=== PATIENT | male | born 1970 | race Two or more races ===

== ENCOUNTER → 2020-02-28 09:58 | Outpatient (BNVA) | payer OTHER, SELFPAY | PROVIDERS: PCP Internal Medicine; Referring Provider Internal Medicine; Visit Provider Nurse Practitioner Gerontology | DX: E11.42 Type 2 diabetes mellitus with diabetic polyneuropathy (principal); I10 Essential (primary) hypertension; Z79.84 Long term (current) use of oral hypoglycemic drugs | CPT/HCPCS: 99213 ==

== ENCOUNTER 2020-08-08 07:59 | Outpatient (REF) | payer OTHER, SELFPAY ==
[2020-08-08 09:24] LABS: Estimated Average Glucose 117 mg/dL; Hemoglobin A1c % 5.7 %
[2020-08-08 09:41] LABS: Creatinine Urine 207.83 mg/dL; Microalbum/Creatinine Ratio Ur 3.8 ug/mg cr
[2020-08-08 09:47] LABS: Alanine Aminotransferase 31 U/L (0-40); Albumin Level 4.3 g/dL (3.5-5.0); Alkaline Phosphatase 108 U/L (39-117); Anion Gap 10 (12-20); Aspartate Amino Transferase 22 U/L (5-37); Bilirubin Total 0.5 mg/dL (0.0-1.0); Blood Urea Nitrogen 12 mg/dL (9-16); Calcium 8.8 mg/dL (8.4-10.2); Carbon Dioxide 29 mmol/L (22-29); Chloride 106 mmol/L (96-108); Cholesterol 118 mg/dL; Estimated Glomerular Filt Rate > 60; Glucose Fasting 106 mg/dL (60-99); HDL Cholesterol 38 mg/dL; LDL Cholesterol Calculated 69 mg/dl; Potassium 4.8 mmol/L (3.3-5.1); Sodium 140 mmol/L (135-145); Total Protein 7.2 g/dL (6.5-8.0); Triglycerides 55 mg/dL
[2020-08-15 12:11] LABS: Vitamin D 25-OH, D2 <4 ng/mL; Vitamin D 25-OH, D3 24 ng/mL; Vitamin D 25-OH, Total 24 ng/mL (30-100)
== END 2020-08-08 08:00 | disposition home or self-care (01) ==
LOC: HO.LAB 07:59
PROVIDERS: Absent Provider Internal Medicine; PCP Internal Medicine; Visit Provider Nurse Practitioner Gerontology
DX: E11.42 Type 2 diabetes mellitus with diabetic polyneuropathy (principal); E55.9 Vitamin D deficiency, unspecified; E78.5 Hyperlipidemia, unspecified
CPT/HCPCS: 36415; 80053; 80061; 82043; 82306; 83036

== ENCOUNTER 2020-08-23 11:12 | Outpatient (REF) | payer OTHER, SELFPAY ==
[2020-08-23 14:26] LABS: SARS COV2 PCR INHOUSE NEGATIVE (Negative)
== END 2020-08-23 11:13 | disposition home or self-care (01) ==
LOC: HO.LAB 11:12
PROVIDERS: Visit Provider Internal Medicine
DX: Z20.822 Contact with and (suspected) exposure to COVID-19 (principal)
CPT/HCPCS: C9803; U0003

== ENCOUNTER 2021-11-03 07:20 | Outpatient (REF) | payer OTHER, SELFPAY ==
[2021-11-03 09:10] LABS: Alanine Aminotransferase 45 U/L (0-40); Albumin Level 4.2 g/dL (3.5-5.0); Alkaline Phosphatase 123 U/L (39-117); Anion Gap 11 (12-20); Aspartate Amino Transferase 33 U/L (5-37); Bilirubin Total 0.8 mg/dL (0.0-1.0); Blood Urea Nitrogen 14 mg/dL (9-16); Calcium 9.1 mg/dL (8.4-10.2); Carbon Dioxide 26 mmol/L (22-29); Chloride 105 mmol/L (96-108); Cholesterol 120 mg/dL; Estimated Glomerular Filt Rate > 60; Glucose Fasting 161 mg/dL (60-99); HDL Cholesterol 31 mg/dL; LDL Cholesterol Calculated 74 mg/dl; Potassium 4.4 mmol/L (3.3-5.1); Sodium 138 mmol/L (135-145); Total Protein 7.3 g/dL (6.5-8.0); Triglycerides 78 mg/dL
[2021-11-03 09:32] LABS: Vitamin D 25-OH Total 26.2 ng/mL (>30)
[2021-11-03 09:37] LABS: Creatinine Urine 265.72 mg/dL; Microalbum/Creatinine Ratio Ur 4.1 ug/mg cr
== END 2021-11-03 07:21 | disposition home or self-care (01) ==
LOC: HO.LAB 07:20
PROVIDERS: PCP Internal Medicine; Visit Provider Internal Medicine
DX: E11.42 Type 2 diabetes mellitus with diabetic polyneuropathy (principal); E78.5 Hyperlipidemia, unspecified; E55.9 Vitamin D deficiency, unspecified
CPT/HCPCS: 36415; 80053; 80061; 82043; 82306

== ENCOUNTER → 2021-12-22 09:39 | Outpatient (BNVA) | payer OTHER, SELFPAY | PROVIDERS: PCP Internal Medicine; Visit Provider Nurse Practitioner Family | DX: Z12.11 Encounter for screening for malignant neoplasm of colon (principal); K21.9 Gastro-esophageal reflux disease without esophagitis | CPT/HCPCS: 99202; 99212 ==

== ENCOUNTER 2022-07-16 09:59 | Day surgery (SDC) | payer OTHER, SELFPAY ==
[2022-04-10 13:56] VITALS: BMI 42.3
--- NOTE | 2022-04-20 10:53 | P.CONAN_ITS ---
HPI - Anesthesia Eval Consult details Narrative: 51yo M for Upper Endoscopy and Colonoscopy [facility] Active Problems Active Problems: All Active Problems (Updated 03/05/22 @ 11:35 by Kiera Roche MD) Hypovitaminosis D (Acute) Diabetes mellitus type 2 in obese (Acute) Morbid obesity (Acute) YONATAN (obstructive sleep apnea) (Acute) Physical exam (Acute) Type 2 diabetes mellitus with polyneuropathy (Acute) Essential hypertension (Acute) Past Medical History Medical History Arthritis Balance disorder Compression fracture Essential hypertension GERD (gastroesophageal reflux disease) Morbid obesity Obesity YONATAN (obstructive sleep apnea) Physical exam Spina bifida occulta Spondylosis Type 2 diabetes mellitus with polyneuropathy Vertebral fracture Family History Family History Mother No problems noted. Father No problems noted. Surgical History Surgical History History of hydrocelectomy Social History Social History (Updated 03/05/22 @ 11:08 by Kiera Roche MD) Housing: Apartment Alcohol intake: former Patient Tobacco Use Status: Former Tobacco user Tobacco use type: Cigarette e-Cigarette/Vaping Use: Never Used Second Hand Smoke Exposure: No service: No Current occupational status: disabled Cognitive needs: Yes Hearing needs: No Vision needs: Yes Meds Allergies Allergy/AdvReac Type Severity Reaction Status Date / Time N.K.D.A. Allergy Unknown none Uncoded 04/10/22 13:39 Home Medications Medication Instructions Recorded Confirmed Last Taken Type cholecalciferol (vitamin D3) 25 25 mcg PO DAILY 02/28/20 04/10/22 Unknown History mcg (1,000 unit) tablet Exam Exam Date and Time: April 20, 2022 1053 Height,Weight and Vital Signs: Height 5 ft 9 in Weight 130.181 kg Pertinent Lab Results Pertinent Lab Results: Laboratory Tests 09/01/18 11/03/21 14:03 07:57 WBC 7.2 Hgb 14.3 Hct 42.5 Plt Count 221 Sodium 138 Potassium 4.4 Chloride 105 Carbon Dioxide 26 BUN 14 Creatinine 1.05 Assessment and Plan Assessment Anesthesia Assessment: Chart Reviewed
[2022-07-10 15:07] VITALS: BMI 44.3
--- NOTE | 2022-07-16 10:32 | MHC.SHP ---
Pre-Procedural Eval Section A Date of Service: 07/16/22 Section B Chief Complaint: reflux disease,screening Details of Present Illness: Medical History Arthritis Balance disorder Compression fracture Essential hypertension GERD (gastroesophageal reflux disease) Morbid obesity Obesity YONATAN (obstructive sleep apnea) Physical exam Spina bifida occulta Spondylosis Type 2 diabetes mellitus with polyneuropathy Vertebral fracture Surgical History History of hydrocelectomy Relevant Family History (Specify if Yes): No Relevant Social History: None Present Medications: see Short Stay Collaborative assessment Allergies: Allergies Allergy/AdvReac Type Severity Reaction Status Date / Time No Known Allergies Allergy Verified 07/16/22 10:22 Review of Systems Review of Systems Comment: Ten point ROS negative Exam Exam Comment: Gen appear: No acute distress HEENT: no icterus Chest: No overt resp distress Abd: soft, nontender, nondistended Psych: Stable affect, answering questions appropriately Neuro: A/Ox3 noted to move all extremities spontaneously Ext: no peripheral edema Plan Diagnosis/Plan: Unchanged I have reviewed the history and physical and performed a pertinent physical examination on my patient. No changes have occurred unless specified. Time Spent With Patient Time: Total time managing care of this patient today ____ minutes.
[2022-07-16 10:57] VITALS: BP 133/73; PULSE 86; RESP 18; TEMP 36.6; O2SAT 95
[2022-07-16 11:05] LABS: Glucose, Whole Blood 103 mg/dL (60-115)
[2022-07-16] MEDS: Lactated Ringers 1,000 ML 50 ML IVCONT (11:05)
--- NOTE | 2022-07-16 11:20 | P.OP_ITS ---
Operative Note Operative Note Date of Service: 07/16/22 Narrative: Procedure:?Esophagogastroduodenoscopy Indication:?GERD Endoscopist:?Shahid Still Anesthesia Provider:?Dr Susanne Saucedo Anesthesia type:?MAC Instrument:?Olympus [id number] EGD Procedure:?? The procedure, indications, preparation and potential complications were reviewed with the patient, who indicated understanding and gave written informed consent to proceed. plodding machine operator assisted with the encounter. A physical exam was performed. The endoscope was introduced through the mouth, and advanced to the second part of the duodenum. The mucosa was carefully examined on slow withdrawal of the endoscope. The patient tolerated the procedure well. There were no immediate complications.? ? EGD Findings:? * Esophagus:? Small linear erosions were noted right above the Z line spanning < 5 mm. The Z line was at 39 cm and irregular with squamocolumnar mucosa extending up to 38 cm. Lower esophagus forceps biopsies were obtained to rule out Onofre's esophagus. * Stomach:? Semi solid food was seen in the fundus and body obscuring most of the visualisation. The antrum appeared normal. Cardia was normal on retroflexion. * Duodenum:? Normal mucosa was noted in the whole of the examined duodenum. The patient was booked for EGD/colonoscopy however due to stomach full of food the colonoscopy was canceled as per anesthesia's discretion as he was deemed to be a high aspiration risk for an elective procedure. Impression:? * Grade A esophagitis * Irregular Z line (biopsy) * Food in stomach ? gastroparesis * Normal duodenum Recommendations:?? * Follow path results. * If Onofre's esophagus confirmed on histology, management will be contingent on presence and extent of dysplasia. * Colonoscopy will rebooked within the next 6 months. Pt will be advised to stay on clear liquids for 36h instead of 24h prior to the colonoscopy. ? This was reviewed with the patient.
[2022-07-16 11:57] VITALS: BP 124/70; PULSE 85; RESP 16; TEMP 36.1; O2SAT 96
[2022-07-16 12:23] VITALS: BP 127/80; PULSE 88; RESP 18; TEMP 36.1; O2SAT 97
--- NOTE | 2022-07-16 12:36 | P.CONAN_ITS ---
HPI - Anesthesia Eval Consult details Narrative: screening [facility] Active Problems Active Problems: All Active Problems (Updated 07/16/22 @ 11:03 by Paulina Perez, RN) Diabetes mellitus type 2 in obese (Acute) Hypovitaminosis D (Acute) Hyperlipidemia LDL goal <70 (Acute) Morbid obesity (Acute) YONATAN (obstructive sleep apnea) (Acute) Physical exam (Acute) Type 2 diabetes mellitus with polyneuropathy (Acute) Essential hypertension (Acute) Past Medical History Medical History (Updated 07/16/22 @ 11:03 by Paulina Perez RN) Arthritis Balance disorder Compression fracture Elevated cholesterol Essential hypertension GERD (gastroesophageal reflux disease) History of fatty infiltration of liver Morbid obesity Obesity YONATAN (obstructive sleep apnea) Physical exam Spina bifida occulta Spondylosis Type 2 diabetes mellitus with polyneuropathy Vertebral fracture Family History Family History Mother No problems noted. Father No problems noted. Family history of problems with anesthesia: No Surgical History Surgical History History of hydrocelectomy History of Problems with Anesthesia: No Social History Social History Housing: Apartment Alcohol intake: former Patient Tobacco Use Status: Former Tobacco user Quit Date: 2006 Tobacco use type: Cigarette e-Cigarette/Vaping Use: Never Used Second Hand Smoke Exposure: No Use of substances other than those prescribed or required for medical reasons: No Are you DNR?: No Advance Directives: No Advance Directives Information Provided: Yes service: No Current occupational status: disabled Cognitive needs: Yes Hearing needs: No Vision needs: Yes Meds Allergies Allergy/AdvReac Type Severity Reaction Status Date / Time No Known Allergies Allergy Verified 07/16/22 10:22 Active Medications: Current Medications Lactated Ringer's (Lr) 1,000 mls @ 50 mls/hr IVCONT .Q20H NKECHI Last Admin: 07/16/22 11:05 Dose: 50 mls/hr Home Medications Medication Instructions Recorded Confirmed Last Taken Type cholecalciferol (vitamin D3) 25 25 mcg PO DAILY 02/28/20 07/06/22 Unknown History mcg (1,000 unit) tablet Exam Exam Date and Time: July 16, 2022 1236 Height,Weight and Vital Signs: Height 5 ft 9 in Weight 136.078 kg Last Vital Signs Temp 97.0 F 07/16/22 12:23 Pulse 88 07/16/22 12:23 Resp 18 07/16/22 12:23 BP 127/80 07/16/22 12:23 Pulse Ox 97 07/16/22 12:23 O2 Del Method 07/16/22 12:23 O2 Flow Rate 4 07/16/22 11:57 Pertinent Lab Results Pertinent Lab Results: Laboratory Tests 07/16/22 10:58 POC Glucose 103 Airway Mallampati Class: III TM Dist: >3cm Neck ROM: Full Denture: Upper and Lower Heart: rr Lungs: cta Assessment and Plan Assessment Anesthesia Assessment: Anesthesia Plan Discussed and Chart Reviewed Final Anesthetic Review Family History of Problems with Anesthesia: No History of Problems with Anesthesia: No NPO: Yes ASA Class: III Final Preanesthetic Review: No Changes in Pt Med Stat, Meds/Allgs Chart R sebastian, Consent Obtained/Reviewed and Anes Risks/Benef Reviewed Patient Risk: High Procedure Risk: Low Anesthetic Plan Anesthetic Plan: MAC: Disposition: Standard PACU
== END 2022-07-16 13:06 | disposition home or self-care (01) ==
PROVIDERS: PCP Internal Medicine; Visit Provider Internal Medicine
PROC: (CPT 43239; principal; 2022-07-16 11:40)
DX: K21.9 Gastro-esophageal reflux disease without esophagitis (principal); K20.80 Other esophagitis without bleeding; K31.89 Other diseases of stomach and duodenum; I10 Essential (primary) hypertension; E66.01 Morbid (severe) obesity due to excess calories; Z68.41 Body mass index [BMI] 40.0-44.9, adult; G47.33 Obstructive sleep apnea (adult) (pediatric); E11.42 Type 2 diabetes mellitus with diabetic polyneuropathy; Z79.84 Long term (current) use of oral hypoglycemic drugs; Z79.899 Other long term (current) drug therapy
CPT/HCPCS: 43239; 82947; 88305

== ENCOUNTER → 2022-07-24 15:20 | Outpatient (REF) | payer OTHER, SELFPAY | LOC: HO.SL 15:20 | PROVIDERS: PCP Internal Medicine; Visit Provider Internal Medicine | DX: G47.33 Obstructive sleep apnea (adult) (pediatric) (principal) | CPT/HCPCS: 95806 ==

== ENCOUNTER → 2022-08-17 13:52 | Outpatient (BNVA) | payer OTHER, SELFPAY | PROVIDERS: PCP Internal Medicine; Visit Provider Nurse Practitioner Family | DX: G47.33 Obstructive sleep apnea (adult) (pediatric) (principal); E66.01 Morbid (severe) obesity due to excess calories; Z68.41 Body mass index [BMI] 40.0-44.9, adult | CPT/HCPCS: 99202 ==

== ENCOUNTER 2022-10-29 08:19 | Outpatient (REF) | payer OTHER, SELFPAY ==
[2022-10-29 10:14] LABS: Alanine Aminotransferase 66 U/L (0-40); Albumin Level 4.2 g/dL (3.5-5.0); Alkaline Phosphatase 135 U/L (39-117); Anion Gap 11 (12-20); Aspartate Amino Transferase 45 U/L (5-37); Bilirubin Total 0.5 mg/dL (0.0-1.0); Blood Urea Nitrogen 11 mg/dL (9-16); Calcium 9.3 mg/dL (8.4-10.2); Carbon Dioxide 26 mmol/L (22-29); Chloride 106 mmol/L (96-108); Cholesterol 115 mg/dL; Estimated Glomerular Filt Rate > 60; Glucose Fasting 155 mg/dL (60-99); HDL Cholesterol 34 mg/dL; LDL Cholesterol Calculated 68 mg/dl; Sodium 139 mmol/L (135-145); Total Protein 7.2 g/dL (6.5-8.0); Triglycerides 67 mg/dL
[2022-10-29 10:15] LABS: Creatinine Urine 303.35 mg/dL; Microalbum/Creatinine Ratio Ur 4.9 ug/mg cr
[2022-10-29 10:31] LABS: Thyroid Stimulating Hormone 1.67 uIU/mL (0.32-4.0); Vitamin D 25-OH Total 27.9 ng/mL (>30)
== END 2022-10-29 08:20 | disposition home or self-care (01) ==
LOC: HO.LAB 08:19
PROVIDERS: PCP Internal Medicine; Visit Provider Internal Medicine
DX: E11.69 Type 2 diabetes mellitus with other specified complication (principal)
CPT/HCPCS: 36415; 80053; 80061; 82043; 82306; 84443

== ENCOUNTER → 2022-11-19 13:58 | Outpatient (BNVA) | payer OTHER, SELFPAY | PROVIDERS: PCP Internal Medicine; Visit Provider Nurse Practitioner Family | DX: G47.33 Obstructive sleep apnea (adult) (pediatric) (principal); E66.01 Morbid (severe) obesity due to excess calories; Z68.41 Body mass index [BMI] 40.0-44.9, adult | CPT/HCPCS: 99212 ==

== ENCOUNTER 2023-03-01 07:43 | Outpatient (REF) | payer OTHER, SELFPAY | END 2023-03-01 07:44 | disposition home or self-care (01) | LOC: HO.LAB 07:43 | PROVIDERS: PCP Internal Medicine; Visit Provider Internal Medicine | DX: E78.5 Hyperlipidemia, unspecified (principal); E55.9 Vitamin D deficiency, unspecified; E11.69 Type 2 diabetes mellitus with other specified complication; E66.9 Obesity, unspecified | CPT/HCPCS: 36415; 80053; 80061; 82043; 82306; 82570 ==

== ENCOUNTER 2023-03-04 10:47 | Outpatient (AMB) | payer OTHER, SELFPAY ==
[2023-03-04 10:59] VITALS: BP 146/90; PULSE 69; O2SAT 95; BMI 40.9
--- NOTE | 2023-03-04 10:59 | MHC.PC.OV ---
Vital Signs 03/04/23 10:59 Height 5 ft 9 in Weight 277 lb BMI 40.9 BP 146/90 H Blood Pressure Location Lt brachial Position Sitting Pulse 69 Pulse Source Pulse Oximeter Pulse Oximetry (%) 95 Oxygen Delivery Method Room Air Intake Visit Reasons: dm Intake Note: Patient here for a follow up DM Senior It Engineer Required: No Accompanied by: Self / Same As Patient Allergies No Known Allergies Allergy (Verified 03/04/23 11:11) Medication List - Last Reconciled 03/04/23 by Kiera Roche MD amlodipine 2.5 mg PO DAILY 90 days blood sugar diagnostic (FreeStyle Lite Strips) 1 strip miscellaneous BID 25 days lisinopril 40 mg PO DAILY 90 days miscellaneous medical supply (Blood Pressure Cuff) As directed pioglitazone 30 mg PO DAILY 90 days rosuvastatin 5 mg PO DAILY 90 days semaglutide (Ozempic) 0.25 mg (0.368 mL) subcut QWEEK 90 days tramadol 50 mg PO BID PRN 30 days Tobacco use date assessed: 07/06/22 Dental Screening Dental Screen Date: 03/04/23 Did you have a dental visit in the last 12 months?: Yes Did you have a dental problem in the last 6 months where you did not have access to dental care?: No Was dental information given to patient?: Patient has dentist HPI HPI Comments History of Present Illness Details This is a 52-year-old male with diabetes mellitus type 2, hypertension, hyperlipidemia and morbid obesity that comes today for follow-up on his conditions. A1c slightly elevated and I will increase Ozempic. Blood pressure also elevated and I will increase amlodipine from 2.5 mg to 5 mg. Blood pressure will be recheck in 3 weeks by nurse navigator. LDL within goal. He is morbidly obese with a BMI of 40.9 and declines weight loss surgery. Was advised to diet and exercise to reach BMI goal less than 30. [facility] Medical History History of fatty infiltration of liver Elevated cholesterol Morbid obesity Physical exam Vertebral fracture Obesity Spina bifida occulta Balance disorder Compression fracture Spondylosis Arthritis YONATAN (obstructive sleep apnea) GERD (gastroesophageal reflux disease) Essential hypertension Type 2 diabetes mellitus with polyneuropathy Surgical History History of esophagogastroduodenoscopy (EGD) Hx of colonoscopy History of hydrocelectomy Family History Mother Hypertension Arthritis Emphysema lung Father Hypertension Diabetes Brother Diabetes Hypertension Social History Housing: Apartment Alcohol intake: former Patient Tobacco Use Status: Former Tobacco user Quit Date: 2006 Tobacco use type: Cigarette e-Cigarette/Vaping Use: Never Used Second Hand Smoke Exposure: No service: No Current occupational status: disabled Cognitive needs: Yes Hearing needs: No Vision needs: Yes Questionnaire Thrive Questionnaire Date Thrive assessed: 07/06/22 EARLE-7 AMB Questionnaire EARLE-7 Date EARLE - 7 assessed: 07/06/22 Source: Developed by Drs. Iván Lee, Yamilka Parker, Wilbert Medrano and colleagues, with an educational mary kate from [employer]. Review of Systems Const All systems reviewed & are unremarkable except as noted in HPI and below Eyes Reports no additional complaints, Denies change in vision and Denies other visual disturbances Card Denies chest pain at rest, Denies chest pain with activity, Denies edema, Denies irregular heart rhythm, Denies claudication, Denies dyspnea, Denies dyspnea on exertion, Denies orthopnea, Denies paroxysmal nocturnal dyspnea and Denies slow heart rate Resp Denies cough, Denies dyspnea and Denies dyspnea on exertion GI Denies abdominal pain, Denies change in bowel habits, Denies excessive flatus, Denies nausea and Denies vomiting Denies urinary hesitancy, Denies urinary incontinence and Denies urinary urgency Musc Denies abnormal gait, Denies atrophy, Denies deformity and Denies limited range of motion Skin/Breast Denies bleeding lesions, Denies changing lesions and Denies rash Neuro Denies abnormal gait and Denies lack of coordination Physical exam (Primary Care) Vital Signs: Last Vital Signs Pulse 69 03/04/23 10:59 BP 146/90 H 03/04/23 10:59 Pulse Ox 95 03/04/23 10:59 Oxygen Delivery Method Room Air 03/04/23 10:59 BMI result Body Mass Index 40.9 Tobacco/Smoking Status: Tobacco use Status Tobacco use date assessed 07/06/22 03/04/23 11:01 Patient Tobacco Use Status Former Tobacco user 03/04/23 11:01 Tobacco use type Cigarette 03/04/23 11:01 e-Cigarette/Vaping Use Never Used 03/04/23 11:01 Thrive Assessment: Date of Thrive Assessment Date Thrive assessed 07/06/22 03/04/23 11:01 Eyes General: appearance normal, both eyes and all related structures Eyelids: Yes eyelids normal Conjunctivae: conjunctivae normal Neck Neck: Yes normal visual inspection and Yes supple Resp Effort & Inspection: normal respiratory effort Auscultation: clear to auscultation bilaterally Cardio Jugular venous distension: no JVD Rate: regular rate Rhythm: regular rhythm Heart sounds: S1 normal heart sound present and S2 normal heart sound present Extrem General: Yes full ROM Office Procedures Flu Questionnaire Does the patient have a severe egg allergy?: No Does the patient have severe life threatening allergies?: No Does the patient have a fever or illness today?: No Has the patient ever had Guillain-[place] Syndrome?: No Has the patient ever had any past reaction to a flu shot?: No Results AMB Hemoglobin A1c AMB Hemoglobin A1c 7.2 % Last Edit by KATTY Barbosa on 03/04/23 11:11 Immunizations flu vacc [id number] 6mos up(PF) 60 mcg(15 mcgx4)/0.5 mL IM syringe Performing Provider: Kiera Roche MD Performing Location: [facility] Administered by: KATTY Barbosa on 03/04/23 11:10 Dose Route Admin Location Dispensed Lot Number Expiration Date NDC Neon Installer 0.5 mL IM Left Deltoid 0.5 mL [id number] 11/21/23 [id number] [employer] VIS Given Date VIS Provided VIS Publication Date 03/04/23 Single Vaccine 20 Eligibility Eligibility Date Funding Source Not [facility] Eligible 03/04/23 Private Assessment and Plan Assessment & Plan (1) Diabetes mellitus type 2 in obese: Code(s): E11.69 - Type 2 diabetes mellitus with other specified complication; E66.9 - Obesity, unspecified Plan: Continue Actos. Increase Ozempic. A1c goal is equal or less than 7%. (2) Hyperlipidemia LDL goal <70: Code(s): E78.5 - Hyperlipidemia, unspecified Plan: Continue statins. LDL goal is less than 70. (3) Essential hypertension: Comment: Advised low-salt diet Code(s): I10 - Essential (primary) hypertension Plan: Continue lisinopril 40 mg once a day. Increase amlodipine from 2.5 mg to 5 mg once a day. Blood pressure goal is equal or less than 130/80. Recheck blood pressure with nurse navigator in 3 weeks. (4) Morbid obesity: Code(s): E66.01 - Morbid (severe) obesity due to excess calories Plan: Start diet and exercise. BMI goal is less than 30. Patient declines weight loss surgery P Orders: Orders AMB Hemoglobin A1c Today E11.69 - Type 2 diabetes mellitus with other specified complication, E66.9 - Obesity, unspecified Vitamin D 25-OH Total 4 Months E55.9 - Vitamin D deficiency, unspecified Comprehensive [place]. Panel Fast 4 Months E11.42 - Type 2 diabetes mellitus with diabetic polyneuropathy Influenza [id number] Immunization Today Z23 - Encounter for immunization Lipid Panel 4 Months E78.5 - Hyperlipidemia, unspecified Microalbumin, Random (w Creat) 4 Months E11.9 - Type 2 diabetes mellitus without complications Medications: New amlodipine 5 mg PO DAILY 90 days 90 tabs 1RF semaglutide 1 mg (0.75 mL) subcut QWEEK 30 days 3.75 mL 6RF E11.42 - Type 2 diabetes mellitus with diabetic polyneuropathy Discontinued amlodipine Discontinued Reason: Patient Completed Course 2.5 mg PO DAILY 90 days 90 tabs 0RF I10 - Essential (primary) hypertension semaglutide (Ozempic) Discontinued Reason: Patient Completed Course 0.25 mg (0.368 mL) subcut QWEEK 90 days 5.2 mL 1RF E11.69 - Type 2 diabetes mellitus with other specified complication, E66.9 - Obesity, unspecified Coding Level of Care Code Est Pt Level 4 (59119) Diagnoses Diabetes mellitus type 2 in obese E11.69; E66.9 Hyperlipidemia LDL goal <70 E78.5 Essential hypertension I10 Morbid obesity E66.01 Time Spent (min) 23
== END 2023-03-04 11:16 | disposition home or self-care (01) ==
PROVIDERS: PCP Internal Medicine; Visit Provider Internal Medicine
DX: Z23 Encounter for immunization (principal); E11.65 Type 2 diabetes mellitus with hyperglycemia; I10 Essential (primary) hypertension; E66.01 Morbid (severe) obesity due to excess calories; Z68.41 Body mass index [BMI] 40.0-44.9, adult
CPT/HCPCS: 83036; 90471; 90686; 99214

== ENCOUNTER 2023-07-19 08:44 | Outpatient (REF) | payer OTHER, SELFPAY ==
[2023-07-19 09:49] LABS: Alanine Aminotransferase 26 U/L (0-40); Albumin Level 4.3 g/dL (3.5-5.0); Alkaline Phosphatase 130 U/L (39-117); Anion Gap 10 (12-20); Aspartate Amino Transferase 26 U/L (5-37); Bilirubin Total 0.4 mg/dL (0.0-1.0); Blood Urea Nitrogen 8 mg/dL (9-16); Calcium 9.2 mg/dL (8.4-10.2); Carbon Dioxide 27 mmol/L (22-29); Chloride 107 mmol/L (96-108); Cholesterol 101 mg/dL (<200); Estimated Glomerular Filt Rate > 60; Glucose Fasting 122 mg/dL (60-99); HDL Cholesterol 38 mg/dL (>40); LDL Cholesterol Calculated 53 mg/dL (<100); Potassium 3.9 mmol/L (3.3-5.1); Sodium 140 mmol/L (135-145); Total Protein 7.7 g/dL (6.5-8.0); Triglycerides 52 mg/dL (<150)
[2023-07-19 10:04] LABS: Vitamin D 25-OH Total 22.4 ng/mL (>30)
[2023-07-19 11:30] LABS: Creatinine Urine 249.19 mg/dL; Microalbum/Creatinine Ratio Ur 6.4 ug/mg cr (<30)
== END 2023-07-19 08:45 | disposition home or self-care (01) ==
LOC: HO.LAB 08:44
PROVIDERS: PCP Internal Medicine; Visit Provider Internal Medicine
DX: E11.42 Type 2 diabetes mellitus with diabetic polyneuropathy (principal); E78.5 Hyperlipidemia, unspecified; E55.9 Vitamin D deficiency, unspecified
CPT/HCPCS: 36415; 80053; 80061; 82043; 82306; 82570

== ENCOUNTER 2023-07-21 10:53 | Outpatient (AMB) | payer OTHER, SELFPAY ==
--- NOTE | 2023-07-21 11:00 | MHC.PC.OV ---
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 Accompanied by: Self / Same As Patient Allergies No Known Allergies Allergy (Verified 07/21/23 11:14) Medication List - Last Reconciled 07/21/23 by Kiera Roche MD amlodipine 5 mg PO DAILY 90 days blood sugar diagnostic (FreeStyle Lite Strips) 1 strip miscellaneous BID 25 days lisinopril 40 mg PO DAILY 90 days miscellaneous medical supply (Blood Pressure Cuff) As directed pioglitazone 30 mg PO DAILY 90 days rosuvastatin 5 mg PO DAILY 90 days semaglutide 1 mg (0.75 mL) subcut QWEEK 30 days tramadol 50 mg PO BID PRN 30 days Tobacco use date assessed: 07/21/23 Dental Screening Dental Screen Date: 07/21/23 Did you have a dental visit in the last 12 months?: Yes Did you have a dental problem in the last 6 months where you did not have access to dental care?: No Was dental information given to patient?: Patient has dentist HPI HPI Comments History of Present Illness Details This is a 52-year-old male with diabetes mellitus type 2, hypertension, hyperlipidemia and severe obesity with BMI of 39.9 that comes today for follow-up on his conditions. Walks with a cane for gait stability due to chronic low back pain that has been relieved with tramadol. Patient is aware that tramadol can cause addiction and sedation. A1c within goal. Blood pressure elevated and he has not take his medications today yet. Blood pressure will be recheck by nurse navigator in 3 weeks. LDL within goal. Has a BMI of 39.9 and will be referred to weight management for evaluation for bariatric surgery. [facility] Medical History (Updated 07/21/23 @ 11:54 by Kiera Roche MD) History of fatty infiltration of liver Elevated cholesterol Morbid obesity Physical exam Vertebral fracture Obesity Spina bifida occulta Balance disorder Compression fracture Spondylosis Arthritis YONATAN (obstructive sleep apnea) GERD (gastroesophageal reflux disease) Essential hypertension Type 2 diabetes mellitus with polyneuropathy Surgical History History of esophagogastroduodenoscopy (EGD) Hx of colonoscopy History of hydrocelectomy Family History Mother Hypertension Arthritis Emphysema lung Father Hypertension Diabetes Brother Diabetes Hypertension Social History Housing: Apartment Alcohol intake: former Patient Tobacco Use Status: Former Tobacco user Quit Date: 2006 Tobacco use type: Cigarette e-Cigarette/Vaping Use: Never Used Second Hand Smoke Exposure: No service: No Current occupational status: disabled Cognitive needs: Yes Hearing needs: No Vision needs: Yes Questionnaire PHQ-9 Over the last 2 weeks, how often have you been bothered by any of the following problems? 1. Little interest or pleasure in doing things: not at all 2. Feeling down, depressed, or hopeless: not at all 3. Trouble falling or staying asleep, or sleeping too much: not at all 4. Feeling tired or having little energy: not at all 5. Poor appetite or overeating: not at all 6. Feeling bad about yourself - or that you are a failure or have let yourself or your family down: not at all 7. Trouble concentrating on things, such as reading the newspaper or watching television: not at all 8. Moving or speaking so slowly that other people could have noticed. Or the opposite - being so fidgety or restless that you have been moving around a lot more than usual: not at all 9. Thoughts that you would be better off or of hurting yourself in some way: not at all Total score: 0 Depression Screening Interpretation: Negative Depression Screening Done: Yes 84264 - PHQ-9 Billing: Yes Source: Developed by Drs. Iván Lee, Yamilka Parker, Wilbert Medrano and colleagues, with an educational mary kate from [employer]. Thrive Questionnaire Date Thrive assessed: 07/21/23 I am a: Patient What is your living situation today?: I have a steady place to live Within the past 12 months, did the food you bought not last and you didn't have the money to get more?: Never true Within the past 12 months, did you worry whether your food would run out before you got money to buy more?: Never true Do you have trouble paying for medicines?: No Do you have trouble getting transportation to medical appointments?: No Do you have trouble paying your heating and electricity bill?: No Do you have trouble taking care of your child, family member or friend?: No Do you have trouble with day-to-day activities such as bathing, preparing meals, shopping, managing finances, etc.?: No Are you currently unemployed and looking for a job?: No Are you interested in more education?: No Please select the resources that you would like help with: None Currently or been in a relationship where the following occur: no concerns reported THRIVE Score: 0 AUDIT C Alcohol Use Questionnaire (AUDIT-C) 1. How often do you have a drink containing alcohol?: Never Total Score: 0 Score Reviewed/Action Taken: No EARLE-7 AMB Questionnaire EARLE-7 Date EARLE - 7 assessed: 07/21/23 Feeling nervous, anxious, or on edge: 0 = Not at all Not being able to stop or control worryin = Not at all Worrying too much about different things: 0 = Not at all Trouble relaxin = Not at all Being so restless that it is hard to sit still: 0 = Not at all Becoming easily annoyed or irritable: 0 = Not at all Feeling afraid as if something awful might happen: 0 = Not at all Total EARLE-7 score (0-4 normal; 5-9 mild; 10-14 moderate; 15-21 severe): 0 Source: Developed by Drs. Iván Lee, Yamilka Parker, Wilbert Medrano and colleagues, with an educational mary kate from [employer]. EARLE-7 Assessment Billing EARLE-7 Assessment Tool: EARLE-7 Assessment 97895 Review of Systems Const All systems reviewed & are unremarkable except as noted in HPI and below Eyes Reports no additional complaints, Denies change in vision and Denies other visual disturbances Card Denies chest pain at rest, Denies chest pain with activity, Denies edema, Denies irregular heart rhythm, Denies claudication, Denies dyspnea, Denies dyspnea on exertion, Denies orthopnea, Denies paroxysmal nocturnal dyspnea and Denies slow heart rate Resp Denies cough, Denies dyspnea and Denies dyspnea on exertion GI Denies abdominal pain, Denies change in bowel habits, Denies excessive flatus, Denies nausea and Denies vomiting Denies urinary hesitancy, Denies urinary incontinence and Denies urinary urgency Musc Denies atrophy, Denies deformity and Denies limited range of motion Physical exam (Primary Care) Vital Signs: Last Vital Signs BP 150/100 H 07/21/23 11:01 BMI result Body Mass Index 39.9 Tobacco/Smoking Status: Tobacco use Status Tobacco use date assessed 07/21/23 07/21/23 11:08 Patient Tobacco Use Status Former Tobacco user 07/21/23 11:08 Tobacco use type Cigarette 07/21/23 11:08 e-Cigarette/Vaping Use Never Used 07/21/23 11:08 PHQ-9: PHQ-9 Score PHQ-9: Total score 0 07/21/23 11:08 Depression Screening Interpretation: Negative Thrive Assessment: Date of Thrive Assessment Date Thrive assessed 07/21/23 07/21/23 11:08 Currently or been in a relationship where the following occur: no concerns reported Const Limitations: ambulation with cane Eyes General: appearance normal, both eyes and all related structures Eyelids: Yes eyelids normal Conjunctivae: conjunctivae normal Neck Neck: Yes normal visual inspection and Yes supple Resp Effort & Inspection: normal respiratory effort Auscultation: clear to auscultation bilaterally Cardio Jugular venous distension: no JVD Rate: regular rate Rhythm: regular rhythm Heart sounds: S1 normal heart sound present and S2 normal heart sound present Extrem General: Yes full ROM Results AMB Hemoglobin A1c AMB Hemoglobin A1c 6.2 % Last Edit by KATTY Barbosa on 07/21/23 11:11 Results Reviewed Results Reviewed: Laboratory Last Values Hgb A1c (Clinic) 6.2 % (4.0-6.0) H 07/21/23 11:00 Assessment and Plan Assessment & Plan (1) Diabetes mellitus type 2 in obese: Code(s): E11.69 - Type 2 diabetes mellitus with other specified complication; E66.9 - Obesity, unspecified Plan: Continue Actos and Ozempic. A1c goal is equal or less than 7%. (2) Severe obesity (BMI 35.0-39.9) with comorbidity: Code(s): E66.01 - Morbid (severe) obesity due to excess calories Plan: Referred to weight management. BMI goal is less than 30. (3) Hyperlipidemia LDL goal <70: Code(s): E78.5 - Hyperlipidemia, unspecified Plan: Continue statins. LDL goal is less than 70. (4) Essential hypertension: Comment: Advised low-salt diet Code(s): I10 - Essential (primary) hypertension Plan: Continue lisinopril. Blood pressure goal is equal or less than 130/80. Recheck blood pressure with nurse navigator in 3 weeks. Orders: Orders AMB Hemoglobin A1c Today E11.42 - Type 2 diabetes mellitus with diabetic polyneuropathy Microalbumin, Random (w Creat) 4 Months E11.9 - Type 2 diabetes mellitus without complications Vitamin D 25-OH Total 4 Months E55.9 - Vitamin D deficiency, unspecified Lipid Panel 4 Months E78.5 - Hyperlipidemia, unspecified Comprehensive [employer] Panel Fast 4 Months E11.69 - Type 2 diabetes mellitus with other specified complication, E66.9 - Obesity, unspecified Referrals Medical Weight Management Referral E66.01 - Morbid (severe) obesity due to excess calories Medications: New cholecalciferol (vitamin D3) 25 mcg PO DAILY 90 days 90 caps 1RF Coding Level of Care Code Est Pt Level 4 (24844) Diagnoses Diabetes mellitus type 2 in obese E11.69; E66.9 Severe obesity (BMI 35.0-39.9) with comorbidity E66.01 Hyperlipidemia LDL goal <70 E78.5 Essential hypertension I10 Additional Codes EARLE-7 Assessment Billing - EARLE-7 Assessment Tool: EARLE-7 Assessment 59465 ([id number]) Time Spent (min) 23
[2023-07-21 11:01] VITALS: BP 150/100; BMI 39.9
[2023-07-21 12:01] VITALS: BP 150/90
== END 2023-07-21 11:26 | disposition home or self-care (01) ==
PROVIDERS: PCP Internal Medicine; Visit Provider Internal Medicine
DX: E11.69 Type 2 diabetes mellitus with other specified complication (principal); E66.9 Obesity, unspecified; E66.01 Morbid (severe) obesity due to excess calories; Z68.39 Body mass index [BMI] 39.0-39.9, adult; E11.42 Type 2 diabetes mellitus with diabetic polyneuropathy; E78.5 Hyperlipidemia, unspecified; I10 Essential (primary) hypertension
CPT/HCPCS: 83036; 99214

== ENCOUNTER 2023-11-05 07:04 | Outpatient (REF) | payer OTHER, SELFPAY ==
[2023-11-05 08:33] LABS: Microalbumin Urine < 5.0 mg/L
[2023-11-05 08:44] LABS: Alanine Aminotransferase 21 U/L (0-40); Albumin Level 4.1 g/dL (3.5-5.0); Alkaline Phosphatase 112 U/L (39-117); Anion Gap 13 (12-20); Aspartate Amino Transferase 20 U/L (5-37); Bilirubin Total 0.4 mg/dL (0.0-1.0); Blood Urea Nitrogen 16 mg/dL (9-16); Calcium 8.9 mg/dL (8.4-10.2); Carbon Dioxide 25 mmol/L (22-29); Chloride 106 mmol/L (96-108); Cholesterol 110 mg/dL (<200); Estimated Glomerular Filt Rate > 60; Glucose Fasting 100 mg/dL (60-99); HDL Cholesterol 35 mg/dL (>40); LDL Cholesterol Calculated 64 mg/dL (<100); Potassium 3.6 mmol/L (3.3-5.1); Sodium 140 mmol/L (135-145); Total Protein 7.2 g/dL (6.5-8.0); Triglycerides 57 mg/dL (<150)
[2023-11-05 09:00] LABS: Vitamin D 25-OH Total 31.4 ng/mL (>30)
== END 2023-11-05 07:05 | disposition home or self-care (01) ==
LOC: HO.LAB 07:04
PROVIDERS: PCP Internal Medicine; Visit Provider Internal Medicine
DX: E11.9 Type 2 diabetes mellitus without complications (principal); E55.9 Vitamin D deficiency, unspecified; E78.5 Hyperlipidemia, unspecified; E11.69 Type 2 diabetes mellitus with other specified complication; E66.9 Obesity, unspecified
CPT/HCPCS: 36415; 80053; 80061; 82043; 82306; 82570

== ENCOUNTER 2023-11-08 10:01 | Outpatient (AMB) | payer OTHER, SELFPAY ==
[2023-11-08 10:10] VITALS: BP 140/82; BMI 37.2
--- NOTE | 2023-11-08 10:10 | MHC.PC.OV ---
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 Accompanied by: Self / Same As Patient Allergies No Known Allergies Allergy (Verified 11/08/23 10:21) Medication List - Last Reconciled 11/08/23 by Kiera Roche MD amlodipine 5 mg PO DAILY 90 days blood sugar diagnostic (FreeStyle Lite Strips) 1 strip miscellaneous BID 25 days cholecalciferol (vitamin D3) 25 mcg PO DAILY 90 days lisinopril 40 mg PO DAILY 90 days miscellaneous medical supply (Blood Pressure Cuff) As directed pioglitazone 30 mg PO DAILY 90 days rosuvastatin 5 mg PO DAILY 90 days semaglutide 1 mg (0.75 mL) subcut QWEEK 30 days tramadol 50 mg PO BID PRN 30 days Tobacco use date assessed: 07/21/23 Dental Screening Dental Screen Date: 07/21/23 HPI HPI Comments History of Present Illness Details This is a 53-year-old male with diabetes mellitus type 2 and severe obesity with BMI of 37.2 that comes for his physical exam. A1c within goal. Blood pressure stable. Last diabetic eye exam was less than a year ago. Walks with a cane for gait stability. Was not able to had colonoscopy in 2022 and will be referred to Gastroenterology for this matter. No chest pain or shortness on breath. [facility] Medical History (Updated 11/08/23 @ 10:34 by Kiera Roche MD) History of fatty infiltration of liver Elevated cholesterol Morbid obesity Physical exam Vertebral fracture Obesity Spina bifida occulta Balance disorder Compression fracture Spondylosis Arthritis YONATAN (obstructive sleep apnea) GERD (gastroesophageal reflux disease) Essential hypertension Type 2 diabetes mellitus with polyneuropathy Surgical History History of esophagogastroduodenoscopy (EGD) Hx of colonoscopy History of hydrocelectomy Family History (Updated 11/08/23 @ 10:25 by Kiera Roche MD) Mother Substance use disorder Father ESRD on hemodialysis Brother Diabetes Hypertension Social History Housing: Apartment Alcohol intake: former Patient Tobacco Use Status: Former Tobacco user Tobacco use type: Cigarette e-Cigarette/Vaping Use: Never Used Second Hand Smoke Exposure: No service: No Current occupational status: disabled Cognitive needs: Yes Hearing needs: No Vision needs: Yes Questionnaire Thrive Questionnaire Date Thrive assessed: 07/21/23 EARLE-7 AMB Questionnaire EARLE-7 Date EARLE - 7 assessed: 07/21/23 Source: Developed by Drs. Iván Lee, Yamilka Parker, Wilbert Medrano and colleagues, with an educational mary kate from [facility]. Review of Systems Const All systems reviewed & are unremarkable except as noted in HPI and below Card Denies chest pain at rest, Denies chest pain with activity, Denies edema, Denies irregular heart rhythm, Denies claudication, Denies dyspnea, Denies dyspnea on exertion, Denies orthopnea, Denies paroxysmal nocturnal dyspnea and Denies slow heart rate Resp Denies cough, Denies dyspnea and Denies dyspnea on exertion GI Denies abdominal pain, Denies change in bowel habits, Denies excessive flatus, Denies nausea and Denies vomiting Denies urinary hesitancy, Denies urinary incontinence and Denies urinary urgency Musc Denies abnormal gait, Denies atrophy, Denies deformity and Denies limited range of motion Skin/Breast Denies bleeding lesions, Denies changing lesions and Denies rash Neuro Denies abnormal gait and Denies lack of coordination Endo Denies cold intolerance Physical exam (Primary Care) Vital Signs: Last Vital Signs BP 140/82 H 11/08/23 10:10 BMI result Body Mass Index 37.2 BMI Assessment/Plan discussion: High BMI High, discussed plan: lifestyle, weight reduction, dietary and physical activity Tobacco/Smoking Status: Tobacco use Status Tobacco use date assessed 07/21/23 11/08/23 10:13 Patient Tobacco Use Status Former Tobacco user 11/08/23 10:13 Tobacco use type Cigarette 11/08/23 10:13 e-Cigarette/Vaping Use Never Used 11/08/23 10:13 Thrive Assessment: Date of Thrive Assessment Date Thrive assessed 07/21/23 11/08/23 10:13 Const General: cooperative Orientation/consciousness: patient oriented x3 Limitations: ambulation with cane HENMT Head: Yes normal to inspection, Yes normocephalic and Yes atraumatic Ears: external ears normal Eyes General: appearance normal, both eyes and all related structures Eyelids: Yes eyelids normal Conjunctivae: conjunctivae normal Neck Neck: Yes normal visual inspection and Yes supple Resp Effort & Inspection: normal respiratory effort Auscultation: clear to auscultation bilaterally Cardio Jugular venous distension: no JVD Rate: regular rate Rhythm: regular rhythm Heart sounds: S1 normal heart sound present and S2 normal heart sound present GI Inspection: Yes normal to inspection Palpation (GI): Soft to palpation and nontender Auscultation: normal bowel sounds Skin General skin exam: no rashes or lesions noted Neuro General: patient oriented x3 and no focal motor deficits Extrem General: Yes full ROM Psych Appearance: grossly normal Results AMB Hemoglobin A1c AMB Hemoglobin A1c 5.8 % Last Edit by KATTY Barbosa on 11/08/23 10:21 Assessment and Plan Assessment & Plan (1) Physical exam: Code(s): Z00.00 - Encounter for general adult medical examination without abnormal findings Plan: Repeat in a year. (2) Severe obesity (BMI 35.0-39.9) with comorbidity: Code(s): E66.01 - Morbid (severe) obesity due to excess calories Plan: Continue diet and exercise. BMI goal is less than 30. (3) Diabetes mellitus type 2 in obese: Code(s): E11.69 - Type 2 diabetes mellitus with other specified complication; E66.9 - Obesity, unspecified Plan: Continue Ozempic. A1c goal is equal or less than 7%. Orders: Orders AMB Hemoglobin A1c Today E11.69 - Type 2 diabetes mellitus with other specified complication, E66.9 - Obesity, unspecified Microalbumin, Random (w Creat) 4 Months E11.9 - Type 2 diabetes mellitus without complications Comprehensive [employer]. Panel Fast 4 Months E11.69 - Type 2 diabetes mellitus with other specified complication, E66.9 - Obesity, unspecified Lipid Panel 4 Months E78.5 - Hyperlipidemia, unspecified Vitamin D 25-OH Total 4 Months E55.9 - Vitamin D deficiency, unspecified Referrals Gastroenterology Referral Z12.11 - Encounter for screening for malignant neoplasm of colon Medications: New pioglitazone 15 mg PO DAILY 90 days 90 tabs 1RF Refilled lisinopril 40 mg PO DAILY 90 days 90 tabs 3RF I10 - Essential (primary) hypertension rosuvastatin 5 mg PO DAILY 90 days 90 tabs 1RF semaglutide 1 mg (0.75 mL) subcut QWEEK 30 days 3.75 mL 6RF E11.42 - Type 2 diabetes mellitus with diabetic polyneuropathy amlodipine 5 mg PO DAILY 90 days 90 tabs 1RF Discontinued pioglitazone Discontinued Reason: Patient Completed Course 30 mg PO DAILY 90 days 90 tabs 1RF E11.42 - Type 2 diabetes mellitus with diabetic polyneuropathy Coding Level of Care Code Est Pt Level 3 (63618) Est Pt Prev Care 40-64y(66339) Diagnoses Physical exam Z00.00 Severe obesity (BMI 35.0-39.9) with comorbidity E66.01 Diabetes mellitus type 2 in obese E11.69; E66.9 Time Spent (min) 35
[2023-11-08 10:33] VITALS: BP 135/80
== END 2023-11-08 10:34 | disposition home or self-care (01) ==
PROVIDERS: PCP Internal Medicine; Visit Provider Internal Medicine
DX: Z00.00 Encounter for general adult medical examination without abnormal findings (principal); E66.01 Morbid (severe) obesity due to excess calories; E11.69 Type 2 diabetes mellitus with other specified complication; E66.9 Obesity, unspecified; Z68.37 Body mass index [BMI] 37.0-37.9, adult
CPT/HCPCS: 83036; 99396

== ENCOUNTER 2024-02-14 14:43 | Outpatient (AMB) | payer OTHER, SELFPAY ==
--- NOTE | 2024-02-14 14:48 | A.OFFVIS_ITS ---
Vital Signs 02/14/24 14:49 Height 5 ft 9 in Weight 244 lb 4.355 oz BMI 36.1 BP 142/80 H Blood Pressure Location Rt brachial Position Sitting Pulse 56 Pulse Source Pulse Oximeter Pulse Oximetry (%) 98 Oxygen Delivery Method Room Air Intake Visit Reasons: Colonoscopy screening Intake Note: Gil presents in office today for a scheduled colo consult. CC; Pt reports that he was supposed to have a colonoscopy approximately 1 year ago. However, there were coordination issues between offices and miscommunication. Pt reports that this would be a recall colo due to poor prep. Pt reports that they are feeling fine and deny any sx at this time. Department Manager Required: Yes Department Manager Name: [id number] Jessica Information Interpreted: non-clinical & clinical Accompanied by: Self / Same As Patient Allergies No Known Allergies Allergy (Verified 02/14/24 14:49) HPI HPI Colonoscopy screening: Details: LAST VISIT 12/22/2021 Screen for colon cancer Patient denies any cardiac or respiratory symptoms.? Reports symptoms of acid reflux with certain food. Takes omeprazole when needed. Denies any issues with anesthesia in the past.? History of sleep apnea not using CPAP, patient reports that his machine broke. ? No history infectious diseases in the past or present.? Not on any anticoagulation therapy.? No family or personal history of colon cancer or polyps.? Patient denies melena, hematochezia, unintentional weight loss or ribbon like stools.? Discussed at length the pre-procedure,? prep, diet & medications as well as what to expect prior, during and after the procedure.?? Stressed the importance of good bowel prep. ?Recommended the use of Vaseline or Calmoseptine OTC & baby wipes with bowel movements to promote comfort.? ?Patient verbalizes understanding and agrees to plan of care.? He was given the opportunity to ask questions and all questions answered.? We will see him after the procedure.? GERD (gastroesophageal reflux disease) Occasional symptoms of acid reflux using omeprazole as needed basis. Discussed with patient avoiding dietary triggers and late night snacking. Staying upright for minimum 3 hours after meals discussed with patient. I will send him for upper endoscopy. I will see him after the procedure. Patient is agreeable to this plan and verbalizes understanding of instructions. He was given the opportunity to ask questions and all questions answered UPPER ENDOSCOPY EGD Findings:? * Esophagus:? Small linear erosions were noted right above the Z line spanning < 5 mm. The Z line was at 39 cm and irregular with squamocolumnar mucosa extending up to 38 cm. Lower esophagus forceps biopsies were obtained to rule out Onofre's esophagus. * Stomach:? Semi solid food was seen in the fundus and body obscuring most of the visualisation. The antrum appeared normal. Cardia was normal on retrofle xion. * Duodenum:? Normal mucosa was noted in the whole of the examined duodenum. The patient was booked for EGD/colonoscopy however due to stomach full of food the colonoscopy was canceled as per anesthesia's discretion as he was deemed to be a high aspiration risk for an elective procedure. Impression:? * Grade A esophagitis * Irregular Z line (biopsy) * Food in stomach ? gastroparesis * Normal duodenum Recommendations:?? * Follow path results. * If Onofre's esophagus confirmed on histology, management will be contingent on presence and extent of dysplasia. * Colonoscopy will rebooked within the next 6 months. Pt will be advised to stay on clear liquids for 36h instead of 24h prior to the colonoscopy PATHOLOGY RESULTS Diagnosis Esophagus, lower, biopsy: - Cardiac-type mucosa with moderate chronic active inflammation; no intestinal metaplasia seen. - Chronic active esophagitis (maximum eosinophil count 1 per high powered field * TODAY'S VISIT: Patient is here today to discuss going for colonoscopy. Patient reports that he had endoscopy last year and they were unable to do colonoscopy as patient did not had good prep. Patient reports that he is moving her bowels well. Reports no issues with anesthesia in the past. No cardiac or respiratory symptoms. Patient no longer has any acid reflux or epigastric pain postprandially. Denies any melena, hematochezia, unintentional weight loss or ribbon like stools. ? [facility] Medical History (Updated 11/08/23 @ 10:34 by Kiera Roche MD) History of fatty infiltration of liver Elevated cholesterol Morbid obesity Physical exam Vertebral fracture Obesity Spina bifida occulta Balance disorder Compression fracture Spondylosis Arthritis YONATAN (obstructive sleep apnea) GERD (gastroesophageal reflux disease) Essential hypertension Type 2 diabetes mellitus with polyneuropathy Surgical History History of esophagogastroduodenoscopy (EGD) Hx of colonoscopy History of hydrocelectomy Family History (Updated 11/08/23 @ 10:25 by Kiera Roche MD) Mother Substance use disorder Father ESRD on hemodialysis Brother Diabetes Hypertension Social History Housing: Apartment Alcohol intake: former Patient Tobacco Use Status: Former Tobacco user Tobacco use type: Cigarette e-Cigarette/Vaping Use: Never Used Second Hand Smoke Exposure: No service: No Current occupational status: disabled Cognitive needs: Yes Hearing needs: No Vision needs: Yes Review of Systems Const Denies weight gain and Denies weight loss ENT Reports no additional complaints, Denies dysphagia and Denies odynophagia Card Reports no additional complaints Resp Reports no additional complaints GI Denies abdominal pain, Denies belching, Denies melena, Denies bloating, Denies change in bowel habits, Denies dysphagia, Denies excessive flatus, Denies dyspepsia, Denies heartburn, Denies diarrhea, Denies loose stools, Denies nausea, Denies odynophagia and Denies vomiting Reports no additional complaints Musc Reports no additional complaints Neuro Reports no additional complaints Psych Reports no additional complaints Endo Reports no additional complaints Physical Exam Const General: healthy appearing and no acute distress Nutritional Appearance: obese Orientation/consciousness: patient oriented x3 Resp Effort & Inspection: normal respiratory effort, able to speak in complete sentences, no tracheal deviation and symmetric chest movement Auscultation: clear to auscultation bilaterally Cardio Rate: regular rate GI Inspection: Yes normal to inspection, No distended and Yes obesity Palpation (GI): Soft to palpation, not firm, nontender and No hepatosplenomegaly present Auscultation: normal bowel sounds General: Yes no CVA tenderness Back/Spine/Pelvis Back: no CVA tenderness Skin General skin exam: elasticity normal, turgor normal and dry skin Neuro General: patient oriented x3 Psych Appearance: grossly normal Mental Status: mental status grossly normal Assessment & Plan Assessment & Plan (1) Screen for colon cancer: Code(s): Z12.11 - Encounter for screening for malignant neoplasm of colon Category: Medical Plan Long discussion with patient about good bowel prep. Patient will start taking Dulcolax 1 week before procedure 2 tablets every evening with 4 tablets at noon day before procedure. This will be followed with split MiraLax prep. Patient was instructed to eat clear liquid diet starting 2 days before procedure in the afternoon. No issues with anesthesia in the past. History of sleep apnea. Patient is taking semaglutide and will need to stop that for more than 7 days before procedure. I will see patient after the procedure, sooner on as needed basis. He is agreeable to this plan and verbalizes understanding of instructions. He was given the opportunity to ask questions and all questions answered. Thank you for allowing me to participate in his care Medications: New bisacodyl (Dulcolax (bisacodyl)) Start taking 2 tablet every night 7 days before the procedure and 1 day before procedure take 4 tablets at noon time followed by MiraLax prep 10 mg (2 x 5 mg) PO BEDTIME 16 tabs 0RF Z12.11 - Encounter for screening for malignant neoplasm of colon polyethylene glycol 3350 (Miralax) As directed by gastroenterology department at [facility] 238 grams PO ONCE 238 grams 0RF Z12.11 - Encounter for screening for malignant neoplasm of colon Coding Level of Care Code Est Pt Level 3 (18432) Diagnoses Screen for colon cancer Z12.11 Time Spent (min) 30 Comment 20 minutes spent with patient and additional 10 minutes spent reviewing his records
[2024-02-14 14:49] VITALS: BP 142/80; PULSE 56; O2SAT 98; BMI 36.1
== END 2024-02-14 15:41 | disposition home or self-care (01) ==
PROVIDERS: PCP Internal Medicine; Visit Provider Nurse Practitioner Family
DX: Z12.11 Encounter for screening for malignant neoplasm of colon (principal); Z01.818 Encounter for other preprocedural examination
CPT/HCPCS: 99213

== ENCOUNTER → 2024-02-14 14:43 | Outpatient (BNVA) | payer OTHER, SELFPAY | PROVIDERS: PCP Internal Medicine; Visit Provider Nurse Practitioner Family | DX: Z01.818 Encounter for other preprocedural examination (principal); K21.9 Gastro-esophageal reflux disease without esophagitis | CPT/HCPCS: 99212 ==

== ENCOUNTER 2024-04-03 08:02 | Outpatient (REF) | payer OTHER, SELFPAY ==
[2024-04-03 09:53] LABS: Alanine Aminotransferase 30 U/L (0-40); Albumin Level 4.2 g/dL (3.5-5.0); Alkaline Phosphatase 108 U/L (39-117); Anion Gap 8 (12-20); Aspartate Amino Transferase 28 U/L (5-37); Bilirubin Total 0.4 mg/dL (0.0-1.0); Blood Urea Nitrogen 16 mg/dL (9-16); Calcium 9.2 mg/dL (8.4-10.2); Carbon Dioxide 26 mmol/L (22-29); Chloride 108 mmol/L (96-108); Cholesterol 115 mg/dL (<200); Estimated Glomerular Filt Rate > 60; Glucose Fasting 100 mg/dL (60-99); HDL Cholesterol 39 mg/dL (>40); LDL Cholesterol Calculated 67 mg/dL (<100); Potassium 4.2 mmol/L (3.3-5.1); Sodium 138 mmol/L (135-145); Total Protein 7.5 g/dL (6.5-8.0); Triglycerides 45 mg/dL (<150)
[2024-04-03 09:56] LABS: Creatinine Urine 145.02 mg/dL; Microalbumin Urine < 5.0 mg/L
== END 2024-04-03 08:03 | disposition home or self-care (01) ==
LOC: HO.LAB 08:02
PROVIDERS: PCP Internal Medicine; Visit Provider Internal Medicine
DX: E11.69 Type 2 diabetes mellitus with other specified complication (principal); E11.9 Type 2 diabetes mellitus without complications; E55.9 Vitamin D deficiency, unspecified; E66.9 Obesity, unspecified; E78.5 Hyperlipidemia, unspecified
CPT/HCPCS: 36415; 80053; 80061; 82306; 82570

== ENCOUNTER 2024-04-04 09:51 | Outpatient (AMB) | payer OTHER, SELFPAY ==
--- NOTE | 2024-04-04 10:01 | A.OFFPC_ITS ---
Vital Signs 04/04/24 10:04 Height 5 ft 9 in Weight 240 lb BMI 35.4 BP 126/80 Blood Pressure Location Lt brachial Position Sitting Intake Visit Reasons: dm Orthopedic Brace Maker Required: No Accompanied by: Self / Same As Patient Allergies No Known Allergies Allergy (Verified 04/04/24 10:12) Medication List - Last Reconciled 04/04/24 by Kiera Roche MD amlodipine 5 mg PO DAILY 90 days bisacodyl (Dulcolax (bisacodyl)) 10 mg (2 x 5 mg) PO BEDTIME blood sugar diagnostic (FreeStyle Lite Strips) 1 strip miscellaneous BID 25 days cholecalciferol (vitamin D3) 25 mcg PO DAILY 90 days lisinopril 40 mg PO DAILY 90 days miscellaneous medical supply (Blood Pressure Cuff) As directed pioglitazone 15 mg PO DAILY 90 days polyethylene glycol 3350 (Miralax) 238 grams PO ONCE rosuvastatin 5 mg PO DAILY 90 days semaglutide 1 mg (0.75 mL) subcut QWEEK 30 days tramadol 50 mg PO BID PRN 30 days Tobacco use date assessed: 07/21/23 Dental Screening Dental Screen Date: 07/21/23 HPI HPI Comments History of Present Illness Details This is a 53-year-old male with diabetes mellitus type 2, hypertension, hyperlipidemia and low vitamin-D that comes today for follow-up on his conditions. A1c within goal. I will discontinue Actos and increase Ozempic. Blood pressure stable. LDL within goal. Vitamin-D normal with supplements. Denies any chest pain or shortness on breath. He is obese with a BMI of 35.4 and was advised to diet and exercise to reach BMI goal less than 30. [facility] Medical History History of fatty infiltration of liver Elevated cholesterol Morbid obesity Physical exam Vertebral fracture Obesity Spina bifida occulta Balance disorder Compression fracture Spondylosis Arthritis YONATAN (obstructive sleep apnea) GERD (gastroesophageal reflux disease) Essential hypertension Type 2 diabetes mellitus with polyneuropathy Surgical History History of esophagogastroduodenoscopy (EGD) Hx of colonoscopy History of hydrocelectomy Family History Mother Substance use disorder Father ESRD on hemodialysis Brother Diabetes Hypertension Social History Housing: Apartment Alcohol intake: former Patient Tobacco Use Status: Former Tobacco user Tobacco use type: Cigarette e-Cigarette/Vaping Use: Never Used Second Hand Smoke Exposure: No service: No Current occupational status: disabled Cognitive needs: Yes Hearing needs: No Vision needs: Yes Questionnaire Thrive Questionnaire Date Thrive assessed: 07/21/23 EARLE-7 AMB Questionnaire EAREL-7 Date EARLE - 7 assessed: 07/21/23 Source: Developed by Drs. Iván Lee, Yamilka Parker, Wilbert Medrano and colleagues, with an educational mary kate from [employer]. Review of Systems Const All systems reviewed & are unremarkable except as noted in HPI and below ENT Denies change in voice, Denies nasal discharge and Denies sinus pain Card Denies chest pain at rest, Denies chest pain with activity, Denies edema, Denies irregular heart rhythm, Denies claudication, Denies dyspnea, Denies dyspnea on exertion, Denies orthopnea, Denies paroxysmal nocturnal dyspnea and Denies slow heart rate Resp Denies cough, Denies dyspnea and Denies dyspnea on exertion Physical exam (Primary Care) Vital Signs: Last Vital Signs BP 126/80 04/04/24 10:04 BMI result Body Mass Index 35.4 BMI Assessment/Plan discussion: High BMI High, discussed plan: lifestyle, weight reduction, dietary and physical activity Tobacco/Smoking Status: Tobacco use Status Tobacco use date assessed 07/21/23 04/04/24 10:03 Patient Tobacco Use Status Former Tobacco user 04/04/24 10:03 Tobacco use type Cigarette 04/04/24 10:03 e-Cigarette/Vaping Use Never Used 04/04/24 10:03 Thrive Assessment: Date of Thrive Assessment Date Thrive assessed 07/21/23 04/04/24 10:03 Resp Effort & Inspection: normal respiratory effort Auscultation: clear to auscultation bilaterally Cardio Jugular venous distension: no JVD Rate: regular rate Rhythm: regular rhythm Heart sounds: S1 normal heart sound present and S2 normal heart sound present Extrem General: Yes full ROM Office Procedures Flu Questionnaire Does the patient have a severe egg allergy?: No Does the patient have severe life threatening allergies?: No Does the patient have a fever or illness today?: No Has the patient ever had Guillain-[place] Syndrome?: No Has the patient ever had any past reaction to a flu shot?: No Results AMB Hemoglobin A1c AMB Hemoglobin A1c 5.6 % Last Edit by KATTY Barbosa on 04/04/24 10:1 1 Immunizations Fluarix Triv [id number] (PF) 45 mcg (15 mcg x 3)/0.5 mL IM syringe Performing Provider: Kiera Roche MD [facility] Administered by: KATTY Barbosa on 04/04/24 10:40 Dose Route Admin Location Dispensed Lot Number Expiration Date ND Field Installation Technician 0.5 mL IM Left Deltoid 0.5 mL [id number] 11/20/24 [id number] [employer] VIS Given Date VIS Provided VIS Publication Date 04/04/24 Single Vaccine 20 Eligibility Eligibility Date Funding Source Not [facility] Eligible 04/04/24 Private Results Reviewed Results Reviewed: Laboratory Last Values Hgb A1c (Clinic) 5.6 % (4.0-6.0) 04/04/24 09:55 Coding Level of Care Code Est Pt Level 4 (57863) Complex EM visit Add On G2211 Diagnoses Diabetes mellitus type 2 in obese E11.69; E66.9 Hyperlipidemia LDL goal <70 E78.5 Hypovitaminosis D E55.9 Essential hypertension I10 Time Spent (min) 21 Assessment & Plan Assessment & Plan (1) Diabetes mellitus type 2 in obese: Code(s): E11.69 - Type 2 diabetes mellitus with other specified complication; E66.9 - Obesity, unspecified Category: Medical Plan: Discontinue Actos. Increase Ozempic. A1c goal is equal or less than 7%. (2) Hyperlipidemia LDL goal <70: Code(s): E78.5 - Hyperlipidemia, unspecified Category: Medical Plan: Continue statins. Repeat lipid panel. LDL goal is less than 70. (3) Hypovitaminosis D: Code(s): E55.9 - Vitamin D deficiency, unspecified Category: Medical Plan: Continue vitamin-D supplements. (4) Essential hypertension: Comment: Advised low-salt diet Code(s): I10 - Essential (primary) hypertension Category: Medical Plan: Continue lisinopril. Blood pressure goal is equal or less than 130/80. Orders: Orders Influenza [id number] Immunization Today Z23 - Encounter for immunization Vitamin D 25-OH Total 4 Months E55.9 - Vitamin D deficiency, unspecified Lipid Panel 4 Months E78.5 - Hyperlipidemia, unspecified Comprehensive [place]. Panel Fast 4 Months E11.69 - Type 2 diabetes mellitus with other specified complication, E66.9 - Obesity, unspecified AMB Hemoglobin A1c Today E11.69 - Type 2 diabetes mellitus with other specified complication, E66.9 - Obesity, unspecified Microalbumin, Random (w Creat) 4 Months R80.9 - Proteinuria, unspecified Medications: New semaglutide (Ozempic) 2 mg (0.75 mL) subcut QWEEK 3 mL 6RF 4 weeks E11.69 - Type 2 diabetes mellitus with other specified complication, E66.9 - Obesity, unspecified Discontinued pioglitazone Discontinued Reason: Patient Completed Course 15 mg PO DAILY 90 days 90 tabs 1RF semaglutide Discontinued Reason: Patient Completed Course 1 mg (0.75 mL) subcut QWEEK 30 days 3.75 mL 6RF E11.42 - Type 2 diabetes mellitus with diabetic polyneuropathy
[2024-04-04 10:04] VITALS: BP 126/80; BMI 35.4
== END 2024-04-04 10:24 | disposition home or self-care (01) ==
PROVIDERS: PCP Internal Medicine; Visit Provider Internal Medicine
DX: E11.69 Type 2 diabetes mellitus with other specified complication (principal); E66.9 Obesity, unspecified; Z68.35 Body mass index [BMI] 35.0-35.9, adult; E78.5 Hyperlipidemia, unspecified; E55.9 Vitamin D deficiency, unspecified; I10 Essential (primary) hypertension

== ENCOUNTER → 2024-04-04 09:51 | Outpatient (BNVA) | payer OTHER, SELFPAY | PROVIDERS: PCP Internal Medicine; Visit Provider Internal Medicine | DX: Z23 Encounter for immunization (principal); E11.69 Type 2 diabetes mellitus with other specified complication; E66.9 Obesity, unspecified; E78.5 Hyperlipidemia, unspecified; E55.9 Vitamin D deficiency, unspecified; I10 Essential (primary) hypertension | CPT/HCPCS: 83036; 90471; 90656; 99212 ==

== ENCOUNTER 2024-06-29 07:42 | Day surgery (SDC) | payer OTHER, SELFPAY ==
[2024-06-27 11:06] VITALS: BMI 35.4
--- NOTE | 2024-06-28 09:58 | HO.ANESPROP2 ---
Documented by User: Kelli Caal NP 06/28/24 09:58 HPI - Anesthesia Eval Consult details Narrative: 53yo M for Colonoscopy Anesthesia Pre-Procedure Meds Is the patient on any of the following meds?: GLP1/DPP4 PMFSH Active Problems Active Problems: All Active Problems Screen for colon cancer (Acute) Severe obesity (BMI 35.0-39.9) with comorbidity (Acute) Hyperlipidemia LDL goal <70 (Acute) Hypovitaminosis D (Acute) Diabetes mellitus type 2 in obese (Acute) YONATAN (obstructive sleep apnea) (Acute) Physical exam (Acute) Essential hypertension (Acute) Past Medical History Medical History History of fatty infiltration of liver Elevated cholesterol Morbid obesity Vertebral fracture Obesity Spina bifida occulta Balance disorder Compression fracture Spondylosis Arthritis YONATAN (obstructive sleep apnea) GERD (gastroesophageal reflux disease) Essential hypertension Type 2 diabetes mellitus with polyneuropathy Family History Family History Mother Substance use disorder Father ESRD on hemodialysis Brother Diabetes Hypertension Family history of problems with anesthesia: No Surgical History Surgical History History of esophagogastroduodenoscopy (EGD) Hx of colonoscopy History of hydrocelectomy History of Problems with Anesthesia: No Social History Social History Housing: Apartment Alcohol intake: former Patient Tobacco Use Status: Former Tobacco user Tobacco use type: Cigarette e-Cigarette/Vaping Use: Never Used Second Hand Smoke Exposure: No Use of substances other than those prescribed or required for medical reasons: No Have you been hit, kicked, punched, or otherwise hurt by someone within the past year? If so, by whom?: No Are you DNR?: No Advance Directives: No Advance Directives Information Provided: Yes Advance Directives on File: No Recently lost weight without trying: No Eating poorly because of decreased appetite: No Nutrition Risks: No Nutritional Risk Poor oral hygiene: No service: No Current occupational status: disabled Cognitive needs: Yes Hearing needs: No Vision needs: Yes Meds Allergies Allergy/AdvReac Type Severity Reaction Status Date / Time No Known Allergies Allergy Verified 04/04/24 10:12 Exam Height,Weight and Vital Signs: Height 5 ft 9 in Weight 108.862 kg Assessment and Plan Assessment Anesthesia Assessment: Chart Reviewed Final Anesthetic Review Family History of Problems with Anesthesia: No History of Problems with Anesthesia: No Documented by User: Aliza Chinchilla MD 06/29/24 09:14 [facility] Past Medical History Medical History History of fatty infiltration of liver Elevated cholesterol Morbid obesity Vertebral fracture Obesity Spina bifida occulta Balance disorder Compression fracture Spondylosis Arthritis YONATAN (obstructive sleep apnea) GERD (gastroesophageal reflux disease) Essential hypertension Type 2 diabetes mellitus with polyneuropathy Family History Family History Mother Substance use disorder Father ESRD on hemodialysis Brother Diabetes Hypertension Surgical History Surgical History History of esophagogastroduodenoscopy (EGD) Hx of colonoscopy History of hydrocelectomy Social History Social History Housing: Apartment Alcohol intake: former Patient Tobacco Use Status: Former Tobacco user Tobacco use type: Cigarette e-Cigarette/Vaping Use: Never Used Second Hand Smoke Exposure: No Use of substances other than those prescribed or required for medical reasons: No Have you been hit, kicked, punched, or otherwise hurt by someone within the past year? If so, by whom?: No Are you DNR?: No Advance Directives: No Advance Directives Information Provided: Yes Advance Directives on File: No Recently lost weight without trying: No Eating poorly because of decreased appetite: No Nutrition Risks: No Nutritional Risk Poor oral hygiene: No service: No Current occupational status: disabled Cognitive needs: Yes Hearing needs: No Vision needs: Yes Meds Allergies Allergy/AdvReac Type Severity Reaction Status Date / Time No Known Allergies Allergy Verified 04/04/24 10:12 Exam Airway Mallampati Class: III (edentulous) TM Dist: >3cm Neck ROM: Full Loose/Missing/Broken Teeth: Yes, Upper and Lower Heart: RRR Lungs: CTA Assessment and Plan Assessment Anesthesia Assessment: Anesthesia Plan Discussed Final Anesthetic Review NPO: Yes ASA Class: III Final Preanesthetic Review: Meds/Allgs Chart Reviewed, Consent Obtained/Reviewed and Anes Risks/Benef Reviewed Patient Risk: Intermediate Procedure Risk: Low Anesthetic Plan Anesthetic Plan: MAC: Disposition: Standard PACU
[2024-06-29 08:42] LABS: Glucose, Whole Blood 79 mg/dL (60-115)
[2024-06-29 08:58] VITALS: BP 134/77; PULSE 58; RESP 16; TEMP 36.5; O2SAT 97
[2024-06-29] MEDS: Lactated Ringers 1,000 ML 100 ML IVCONT (09:04)
--- NOTE | 2024-06-29 09:29 | MHC.SHP ---
Pre-Procedural Eval Section A - 24 Hr Update-Section A only Date of Service: 06/29/24 Section B - Complete if H&P > 30 days Chief Complaint: screening Details of Present Illness: History of fatty infiltration of liver Elevated cholesterol Morbid obesity Physical exam Vertebral fracture Obesity Spina bifida occulta Balance disorder Compression fracture Spondylosis Arthritis YONATAN (obstructive sleep apnea) GERD (gastroesophageal reflux disease) Essential hypertension Type 2 diabetes mellitus with polyneuropathy Allergies: Allergies Allergy/AdvReac Type Severity Reaction Status Date / Time No Known Allergies Allergy Verified 04/04/24 10:12 Review of Systems Review of Systems Comment: Ten point ROS negative Exam Exam Comment: Gen appear: No acute distress HEENT: no icterus Chest: No overt resp distress Abd: soft, nontender, nondistended Psych: Stable affect, answering questions appropriately Neuro: A/Ox3 noted to move all extremities spontaneously Ext: no peripheral edema Plan Diagnosis/Plan: Unchanged I have reviewed the history and physical and performed a pertinent physical examination on my patient. No changes have occurred unless specified. Time Spent With Patient Time: Total time managing care of this patient today ____ minutes.
--- NOTE | 2024-06-29 10:02 | P.OPN-COLO_ITS ---
Colonoscopy Operative Note Operative Note Date of Service: 06/29/24 Narrative: Procedure: Colonoscopy Indication: Screening Endoscopist: Hoa Still MD Anesthesia Provider: Dr Malka Chinchilla Anesthesia type: MAC Instrument: Olympus [id number]-[id number] Consent: Indication, risks vs benefits, and alternatives were discussed with the patient who gave written informed consent to proceed. An restaurant managing partner was utilized to assist with the consent. Monitoring: EKG, pulse, pulse oximetry and blood pressure were monitored throughout the procedure. Please see anesthesia flowsheet. Procedure: The patient was brought to the procedure room and placed in the left lateral decubitus position. IV medications were administered by the anesthesia provider in attendance. A digital rectal exam was performed which was normal. A distal attachment cap was affixed to the tip of the colonoscope which was then inserted through the anus and advanced through the colon to the cecum at 80 cm,and terminal ileum. Appendiceal orifice and ileocecal valve were identified. Mucosa was carefully examined under high definition white light as the instrument was slowly withdrawn in a retrograde panoramic fashion. Retroflexion was performed in rectum. The procedure was somewhat difficult and required pressure to intubate the cecum. There were no immediate obvious complications. The quality of the prep was BBPS: 2+2+3 = adequate Withdrawal time 7 minutes. Limitations: No limitations. Findings: Mucosa: Normal to cecum. Protruding lesions: * Medium internal hemorrhoids [without] stigmata of recent bleeding. Impression: 1. Normal colon mucosa 2. Internal hemorrhoids Recommendations: - Repeat colonoscopy in 5-7 years due to prep. - Follow up in GI office PRN
[2024-06-29 10:06] VITALS: BP 120/68; PULSE 57; RESP 18; TEMP 36.3; O2SAT 98
[2024-06-29 10:21] VITALS: BP 133/82; PULSE 62; RESP 18
[2024-06-29 10:35] VITALS: BP 136/74; PULSE 68; RESP 18; O2SAT 100
[2024-06-29 10:50] VITALS: BP 128/69; PULSE 68; RESP 18; TEMP 36.3; O2SAT 100
== END 2024-06-29 11:21 | disposition home or self-care (01) ==
PROVIDERS: PCP Internal Medicine; Visit Provider Internal Medicine
PROC: 0DJD8ZZ Inspection of Lower Intestinal Tract, Via Natural or Artificial Opening Endoscopic (ICD-10-PCS; CPT 45378; principal; 2024-06-29 09:50)
DX: Z12.11 Encounter for screening for malignant neoplasm of colon (principal); K64.8 Other hemorrhoids; K21.9 Gastro-esophageal reflux disease without esophagitis; K76.0 Fatty (change of) liver, not elsewhere classified; I10 Essential (primary) hypertension; E78.00 Pure hypercholesterolemia, unspecified; E11.42 Type 2 diabetes mellitus with diabetic polyneuropathy; G47.33 Obstructive sleep apnea (adult) (pediatric); Q76.0 Spina bifida occulta; E66.01 Morbid (severe) obesity due to excess calories; Z68.36 Body mass index [BMI] 36.0-36.9, adult; Z79.85 Long-term (current) use of injectable non-insulin antidiabetic drugs; Z79.899 Other long term (current) drug therapy; Z87.891 Personal history of nicotine dependence
CPT/HCPCS: G0121; 82947; J2003; J2704

== ENCOUNTER 2024-08-03 08:40 | Outpatient (REF) | payer OTHER, SELFPAY ==
[2024-08-03 10:13] LABS: Alanine Aminotransferase 26 U/L (0-40); Albumin Level 4.3 g/dL (3.5-5.0); Alkaline Phosphatase 112 U/L (39-117); Anion Gap 10 (12-20); Aspartate Amino Transferase 29 U/L (5-37); Bilirubin Total 0.4 mg/dL (0.0-1.0); Blood Urea Nitrogen 20 mg/dL (9-16); Calcium 9.2 mg/dL (8.4-10.2); Carbon Dioxide 24 mmol/L (22-29); Chloride 109 mmol/L (96-108); Cholesterol 123 mg/dL (<200); Estimated Glomerular Filt Rate > 60; Glucose Fasting 97 mg/dL (60-99); HDL Cholesterol 41 mg/dL (>40); LDL Cholesterol Calculated 74 mg/dL (<100); Potassium 4.2 mmol/L (3.3-5.1); Sodium 139 mmol/L (135-145); Total Protein 7.8 g/dL (6.5-8.0); Triglycerides 40 mg/dL (<150)
[2024-08-03 10:34] LABS: Vitamin D 25-OH Total 31.8 ng/mL (>30)
[2024-08-03 11:40] LABS: Creatinine Urine 117.68 mg/dL; Microalbumin Urine < 5.0 mg/L
== END 2024-08-03 08:41 | disposition home or self-care (01) ==
LOC: HO.LAB 08:40
PROVIDERS: PCP Internal Medicine; Visit Provider Internal Medicine
DX: E11.69 Type 2 diabetes mellitus with other specified complication (principal); E66.9 Obesity, unspecified; R80.9 Proteinuria, unspecified; E55.9 Vitamin D deficiency, unspecified; E78.5 Hyperlipidemia, unspecified
CPT/HCPCS: 36415; 80053; 80061; 82043; 82306; 82570

== ENCOUNTER 2024-08-08 10:57 | Outpatient (AMB) | payer OTHER, SELFPAY ==
--- NOTE | 2024-08-08 11:02 | MHC.PC.OV ---
Vital Signs 08/08/24 11:03 Height 5 ft 9 in Weight 237 lb BMI 35.0 BP 136/84 Blood Pressure Location Lt brachial Position Sitting Intake Visit Reasons: dm Intake Note: Patient here for a follow up DM Mule Packer Required: Yes Mule Packer Language: Invasive Physician Name: Kiera Roche MD Information Interpreted: non-clinical & clinical Accompanied by: Self / Same As Patient Allergies No Known Allergies Allergy (Verified 08/08/24 11:12) Medication List - Last Reconciled 08/08/24 by Kiera Roche MD amlodipine 5 mg PO DAILY 90 days blood sugar diagnostic (FreeStyle Lite Strips) 1 strip miscellaneous BID 25 days cholecalciferol (vitamin D3) 25 mcg PO DAILY 90 days lisinopril 40 mg PO DAILY 90 days miscellaneous medical supply (Blood Pressure Cuff) As directed rosuvastatin 5 mg PO DAILY 90 days semaglutide (Ozempic) 2 mg (0.75 mL) subcut QWEEK 4 weeks tramadol 50 mg PO BID PRN 30 days Tobacco use date assessed: 08/08/24 Dental Screening Dental Screen Date: 08/08/24 Did you have a dental visit in the last 12 months?: No Did you have a dental problem in the last 6 months where you did not have access to dental care?: No Was dental information given to patient?: Patient has dentist HPI HPI Comments History of Present Illness Details The patient is a 53-year-old male presenting with a follow-up visit for Type 2 Diabetes Mellitus and hypertension. His diabetes is well-managed, indicated by an A1c of 5.4% today, suggesting effective glycemic control through the use of semaglutide (Ozempic) at 2 mg. His treatment for hypertension comprises amlodipine and lisinopril, both maintaining optimal blood pressure levels. He has chronic lumbar pain due to spondylosis, maintaining his quality of life with tramadol for pain management; this has been a long-term treatment approach. Despite the use of a cane, he continues to manage his mobility. Hyperlipidemia treatment with rosuvastatin 5 mg results in an LDL of 74 mg/dL, requiring slight improvement to meet the target level. Previous obesity peaked at 300 pounds, but recent efforts have successfully reduced his weight to 237 pounds, although weight management remains a priority given current class 2 obesity status. PFSH Medical History History of fatty infiltration of liver Elevated cholesterol Morbid obesity Vertebral fracture Obesity Spina bifida occulta Balance disorder Compression fracture Spondylosis Arthritis YONATAN (obstructive sleep apnea) GERD (gastroesophageal reflux disease) Essential hypertension Type 2 diabetes mellitus with polyneuropathy Surgical History History of esophagogastroduodenoscopy (EGD) Hx of colonoscopy History of hydrocelectomy Family History Mother Substance use disorder Father ESRD on hemodialysis Brother Diabetes Hypertension Social History Housing: Apartment Alcohol intake: former Patient Tobacco Use Status: Former Tobacco user Tobacco use type: Cigarette e-Cigarette/Vaping Use: Never Used Second Hand Smoke Exposure: No service: No Current occupational status: disabled Cognitive needs: Yes Hearing needs: No Vision needs: Yes Questionnaire PHQ-9 Over the last 2 weeks, how often have you been bothered by any of the following problems? 1. Little interest or pleasure in doing things: not at all 2. Feeling down, depressed, or hopeless: not at all 3. Trouble falling or staying asleep, or sleeping too much: not at all 4. Feeling tired or having little energy: not at all 5. Poor appetite or overeating: not at all 6. Feeling bad about yourself - or that you are a failure or have let yourself or your family down: not at all 7. Trouble concentrating on things, such as reading the newspaper or watching television: not at all 8. Moving or speaking so slowly that other people could have noticed. Or the opposite - being so fidgety or restless that you have been moving around a lot more than usual: not at all 9. Thoughts that you would be better off or of hurting yourself in some way: not at all Total score: 0 Depression Screening Interpretation: Negative Depression Screening Done: Yes 56349 - PHQ-9 Billing: Yes Source: Developed by Drs. Iván Lee, Yamilka Parker, Wilbert Medrano and colleagues, with an educational mary kate from [employer] ([employer]: [place]). Thrive Questionnaire Date Thrive assessed: 08/08/24 I am a: Patient What is your living situation today?: I have a steady place to live Within the past 12 months, did the food you bought not last and you didn't have the money to get more?: Never true Within the past 12 months, did you worry whether your food would run out before you got money to buy more?: Never true Do you have trouble paying for medicines?: No Do you have trouble getting transportation to medical appointments?: No Do you have trouble paying your heating and electricity bill?: No Do you have trouble taking care of your child, family member or friend?: No Do you have trouble with day-to-day activities such as bathing, preparing meals, shopping, managing finances, etc.?: No Are you currently unemployed and looking for a job?: No Are you interested in more education?: No Please select the resources that you would like help with: None Currently or been in a relationship where the following occur: No concerns reported THRIVE Score: 0 AUDIT C Alcohol Use Questionnaire (AUDIT-C) 1. How often do you have a drink containing alcohol?: Never Total Score: 0 Score Reviewed/Action Taken: No EARLE-7 AMB Questionnaire EARLE-7 Date EARLE - 7 assessed: 08/08/24 Feeling nervous, anxious, or on edge: 0 = Not at all Not being able to stop or control worryin = Not at all Worrying too much about different things: 0 = Not at all Trouble relaxin = Not at all Being so restless that it is hard to sit still: 0 = Not at all Becoming easily annoyed or irritable: 0 = Not at all Feeling afraid as if something awful might happen: 0 = Not at all Total EARLE-7 score (0-4 normal; 5-9 mild; 10-14 moderate; 15-21 severe): 0 Source: Developed by Drs. Iván Lee, Yamilka Parker, Wilbert Medrano and colleagues, with an educational mary kate from [employer] ([employer]: [place]). EARLE-7 Assessment Billing EARLE-7 Assessment Tool: EARLE-7 Assessment 82468 Review of Systems Const All systems reviewed & are unremarkable except as noted in HPI and below Card Denies chest pain at rest, Denies chest pain with activity, Denies edema, Denies irregular heart rhythm, Denies claudication, Denies dyspnea, Denies dyspnea on exertion, Denies orthopnea, Denies paroxysmal nocturnal dyspnea and Denies slow heart rate Resp Denies cough, Denies dyspnea and Denies dyspnea on exertion Musc Denies atrophy, Denies deformity and Denies limited range of motion Skin/Breast Denies bleeding lesions, Denies changing lesions and Denies rash Physical exam (Primary Care) Vital Signs: Last Vital Signs BP 136/84 08/08/24 11:03 BMI result Body Mass Index 35.0 BMI Assessment/Plan discussion: High BMI High, discussed plan: lifestyle, weight reduction, dietary and physical activity Tobacco/Smoking Status: Tobacco use Status Tobacco use date assessed 08/08/24 08/08/24 11:08 Patient Tobacco Use Status Former Tobacco user 08/08/24 11:08 Tobacco use type Cigarette 08/08/24 11:08 e-Cigarette/Vaping Use Never Used 08/08/24 11:08 PHQ-9: PHQ-9 Score PHQ-9: Total score 0 08/08/24 11:17 Depression Screening Interpretation: Negative Thrive Assessment: Date of Thrive Assessment Date Thrive assessed 08/08/24 08/08/24 11:08 Currently or been in a relationship where the following occur: No concerns reported Resp Effort & Inspection: normal respiratory effort Auscultation: clear to auscultation bilaterally Cardio Jugular venous distension: no JVD Rate: regular rate Rhythm: regular rhythm Heart sounds: S1 normal heart sound present and S2 normal heart sound present Extrem General: Yes full ROM Results AMB Hemoglobin A1c AMB Hemoglobin A1c 5.4 % Last Edit by KATTY Barbosa on 08/08/24 11:10 Results Reviewed Results Reviewed: Laboratory Last Values Hgb A1c (Clinic) 5.4 % (4.0-6.0) 08/08/24 10:59 Coding Level of Care Code Est Pt Level 4 (35432) Complex EM visit Add On G2211 Diagnoses Diabetes mellitus type 2 in obese E11.69; E66.9 Hyperlipidemia LDL goal <70 E78.5 Hypovitaminosis D E55.9 Essential hypertension I10 Severe obesity (BMI 35.0-39.9) with comorbidity E66.01 Additional Codes EARLE-7 Assessment Billing - EARLE-7 Assessment Tool: EARLE-7 Assessment 48382 ([id number]) PHQ-9 - 38761 - PHQ-9 Billing: Yes ([id number]) Time Spent (min) 21 Assessment & Plan Assessment & Plan (1) Diabetes mellitus type 2 in obese: Code(s): E11.69 - Type 2 diabetes mellitus with other specified complication; E66.9 - Obesity, unspecified Category: Medical (2) Hyperlipidemia LDL goal <70: Code(s): E78.5 - Hyperlipidemia, unspecified Category: Medical (3) Hypovitaminosis D: Code(s): E55.9 - Vitamin D deficiency, unspecified Category: Medical (4) Essential hypertension: Comment: Advised low-salt diet Code(s): I10 - Essential (primary) hypertension Category: Medical (5) Severe obesity (BMI 35.0-39.9) with comorbidity: Code(s): E66.01 - Morbid (severe) obesity due to excess calories Category: Medical Plan For Type 2 Diabetes Mellitus, we observe effective control with the current regimen of semaglutide 2 mg. Hypertension remains well-cared for with amlodipine and lisinopril. Tramadol continues to be used for chronic lumbar pain management due to spondylosis. Hyperlipidemia will remain addressed by the existing rosuvastatin regimen, and the patient has been advised to continue weight reduction efforts in response to class 2 obesity. A comprehensive review is scheduled for the December 07 appointment, along with repeat laboratory tests. Patient was informed and verbally consented to the use of an ambient scribe for clinic note documentation during this visit. I discussed the satisfactory control of diabetes, hypertension, and hyperlipidemia with the patient. He understands the rationale for continuing his current treatment regimens with semaglutide, amlodipine, lisinopril, and rosuvastatin. We reviewed the need for continuous weight management to improve his obesity status. I emphasized the benefits of maintaining the current medication plan but advised vigilance in monitoring pain levels in relation to lumbar spondylosis and using tramadol responsibly. The patient acknowledged the importance of follow-up labs and their role in guiding future management decisions. We will conduct further assessments at the next scheduled physical exam and laboratory test review in November. Orders: Orders Lipid Panel 4 Months E78.5 - Hyperlipidemia, unspecified Microalbumin, Random (w Creat) 4 Months R80.9 - Proteinuria, unspecified AMB Hemoglobin A1c Today E11.69 - Type 2 diabetes mellitus with other specified complication, E66.9 - Obesity, unspecified Vitamin D 25-OH Total 4 Months E55.9 - Vitamin D deficiency, unspecified Comprehensive [place]. Panel Fast 4 Months E11.69 - Type 2 diabetes mellitus with other specified complication, E66.9 - Obesity, unspecified Patient Instructions: - Continue taking medications as prescribed. - Maintain current lifestyle modifications to support weight loss. - Use tramadol as needed for chronic back pain, being mindful of its effects. - Attend the upcoming physical exam scheduled for December 07. - Perform follow-up laboratory tests prior to the next appointment. - Monitor blood pressure levels regularly and report any significant changes. - Aim for further weight loss by maintaining a healthy diet and exercise routine.
[2024-08-08 11:03] VITALS: BP 136/84; BMI 35.0
== END 2024-08-08 11:20 | disposition home or self-care (01) ==
LOC: HO.HMCH 10:58
PROVIDERS: PCP Internal Medicine; Visit Provider Internal Medicine
DX: E11.69 Type 2 diabetes mellitus with other specified complication (principal); E66.01 Morbid (severe) obesity due to excess calories; Z68.35 Body mass index [BMI] 35.0-35.9, adult; E78.5 Hyperlipidemia, unspecified; E55.9 Vitamin D deficiency, unspecified; I10 Essential (primary) hypertension

== ENCOUNTER → 2024-08-08 10:57 | Outpatient (BNVA) | payer OTHER, SELFPAY | PROVIDERS: PCP Internal Medicine; Visit Provider Internal Medicine | DX: E11.69 Type 2 diabetes mellitus with other specified complication (principal); E66.9 Obesity, unspecified; E78.5 Hyperlipidemia, unspecified; E55.9 Vitamin D deficiency, unspecified; I10 Essential (primary) hypertension | CPT/HCPCS: 83036; 96127; 99212 ==

== ENCOUNTER 2024-12-05 07:23 | Outpatient (REF) | payer OTHER, SELFPAY ==
[2024-12-05 09:23] LABS: Alanine Aminotransferase 35 U/L (0-40); Albumin Level 4.6 g/dL (3.5-5.0); Alkaline Phosphatase 109 U/L (39-117); Anion Gap 8 (12-20); Aspartate Amino Transferase 35 U/L (5-37); Blood Urea Nitrogen 18 mg/dL (9-16); Calcium 8.8 mg/dL (8.4-10.2); Carbon Dioxide 27 mmol/L (22-29); Chloride 108 mmol/L (96-108); Cholesterol 138 mg/dL (<200); Estimated Glomerular Filt Rate > 60; HDL Cholesterol 44 mg/dL (>40); Potassium 4.3 mmol/L (3.3-5.1); Sodium 139 mmol/L (135-145); Total Protein 7.7 g/dL (6.5-8.0); Triglycerides 62 mg/dL (<150)
[2024-12-05 09:47] LABS: Microalbum/Creatinine Ratio Ur 4.6 ug/mg cr (<30)
== END 2024-12-05 07:24 | disposition home or self-care (01) ==
LOC: HO.LAB 07:23
PROVIDERS: PCP Internal Medicine; Visit Provider Internal Medicine
DX: E11.69 Type 2 diabetes mellitus with other specified complication (principal); E78.5 Hyperlipidemia, unspecified; E55.9 Vitamin D deficiency, unspecified; R80.9 Proteinuria, unspecified; E66.9 Obesity, unspecified
CPT/HCPCS: 36415; 80053; 80061; 82043; 82306; 82570

== ENCOUNTER 2025-03-02 10:50 | Outpatient (AMB) | payer OTHER, SELFPAY ==
--- NOTE | 2025-03-02 10:59 | MHC.PC.OV ---
Vital Signs 03/02/25 11:00 Height 5 ft 9 in Weight 245 lb BMI 36.2 BP 130/80 Blood Pressure Location Lt brachial Position Sitting Pulse 65 Pulse Source Pulse Oximeter Temp 97.1 F Temp Source Temporal Artery Scan Pulse Oximetry (%) 98 Oxygen Delivery Method Room Air Intake Visit Reasons: annual physical Intake Note: Patient is here today for a physical. 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 Environmental Field Technician: Not Required per policy Accompanied by: Self / Same As Patient Allergies No Known Allergies Allergy (Verified 03/02/25 11:22) Medication List - Last Reconciled 03/02/25 by Kiera Roche MD amlodipine 5 mg PO DAILY 90 days blood sugar diagnostic (FreeStyle Lite Strips) 1 strip miscellaneous BID 25 days cholecalciferol (vitamin D3) 25 mcg PO DAILY 90 days lisinopril 40 mg PO DAILY 90 days miscellaneous medical supply (Blood Pressure Cuff) As directed rosuvastatin 5 mg PO DAILY 90 days semaglutide (Ozempic) 2 mg (0.75 mL) subcut QWEEK 4 weeks tramadol 50 mg PO BID PRN 30 days Tobacco use date assessed: 03/02/25 Dental Screening Dental Screen Date: 08/08/24 HPI HPI Comments History of Present Illness Details The patient is a 54-year-old male presenting for his physical exam. Colonoscopy done 2022. Hypertension is well-controlled with a current blood pressure of 130/80 mmHg. The patient denies any new medications and has no history of smoking or alcohol use. Diabetes management is effective, with an A1c of 5.5%. The patient is advised to maintain the current regimen without medication changes. Hyperlipidemia is stable, with LDL at 82 mg/dL, slightly up from 74 mg/dL. No medication adjustments are necessary at this time. Chronic back pain continues, and the patient uses a cane for support. Weight management is recommended as part of the health plan. The patient had an eye exam last year and is due for another. [facility] Medical History History of fatty infiltration of liver Elevated cholesterol Morbid obesity Vertebral fracture Obesity Spina bifida occulta Balance disorder Compression fracture Spondylosis Arthritis YONATAN (obstructive sleep apnea) GERD (gastroesophageal reflux disease) Essential hypertension Type 2 diabetes mellitus with polyneuropathy Surgical History History of esophagogastroduodenoscopy (EGD) Hx of colonoscopy History of hydrocelectomy Family History (Reviewed 03/02/25 @ 11: by Kiera Roche MD) Mother Substance use disorder Father ESRD on hemodialysis Brother Diabetes Hypertension Social History Housing: Apartment Alcohol intake: former Patient Tobacco Use Status: Former Tobacco user Tobacco use type: Cigarette e-Cigarette/Vaping Use: Never Used Second Hand Smoke Exposure: Yes service: No Current occupational status: disabled Cognitive needs: Yes Hearing needs: No Vision needs: Yes Questionnaire PHQ-9 Over the last 2 weeks, how often have you been bothered by any of the following problems? 1. Little interest or pleasure in doing things: not at all 2. Feeling down, depressed, or hopeless: not at all 3. Trouble falling or staying asleep, or sleeping too much: not at all 4. Feeling tired or having little energy: not at all 5. Poor appetite or overeating: not at all 6. Feeling bad about yourself - or that you are a failure or have let yourself or your family down: not at all 7. Trouble concentrating on things, such as reading the newspaper or watching television: not at all 8. Moving or speaking so slowly that other people could have noticed. Or the opposite - being so fidgety or restless that you have been moving around a lot more than usual: not at all 9. Thoughts that you would be better off or of hurting yourself in some way: not at all Total score: 0 Depression Screening Interpretation: Negative Depression Screening Done: Yes 02377 - PHQ-9 Billing: Yes Source: Developed by Drs. Iván Lee, Yamilka Parker, Wilbert Medrano and colleagues, with an educational mary kate from [employer]. Thrive Questionnaire Date Thrive assessed: 08/08/24 I am a: Patient What is your living situation today?: I have a steady place to live Within the past 12 months, did the food you bought not last and you didn't have the money to get more?: I choose not to answer this question Within the past 12 months, did you worry whether your food would run out before you got money to buy more?: I choose not to answer this question Do you have trouble paying for medicines?: I choose not to answer this question Do you have trouble getting transportation to medical appointments?: I choose not to answer this question Do you have trouble paying your heating and electricity bill?: I choose not to answer this question Do you have trouble taking care of your child, family member or friend?: I choose not to answer this question Do you have trouble with day-to-day activities such as bathing, preparing meals, shopping, managing finances, etc.?: I choose not to answer this question Are you currently unemployed and looking for a job?: I choose not to answer this question Are you interested in more education?: I choose not to answer this question Please select the resources that you would like help with: None Currently or been in a relationship where the following occur: I choose not to answer THRIVE Score: 0 AUDIT C Alcohol Use Questionnaire (AUDIT-C) 1. How often do you have a drink containing alcohol?: Never Total Score: 0 Score Reviewed/Action Taken: No EARLE-7 AMB Questionnaire EARLE-7 Date EARLE - 7 assessed: 08/08/24 Feeling nervous, anxious, or on edge: 0 = Not at all Not being able to stop or control worryin = Not at all Worrying too much about different things: 0 = Not at all Trouble relaxin = Not at all Being so restless that it is hard to sit still: 0 = Not at all Becoming easily annoyed or irritable: 0 = Not at all Feeling afraid as if something awful might happen: 0 = Not at all Total EARLE-7 score (0-4 normal; 5-9 mild; 10-14 moderate; 15-21 severe): 0 Source: Developed by Drs. Iván Lee, Yamilka Parker, Wilbert Medrano and colleagues, with an educational mary kate from [employer]. EARLE-7 Assessment Billing EARLE-7 Assessment Tool: EARLE-7 Assessment 91550 Review of Systems Const All systems reviewed & are unremarkable except as noted in HPI and below Card Denies chest pain at rest, Denies chest pain with activity, Denies edema, Denies irregular heart rhythm, Denies claudication, Denies dyspnea, Denies dyspnea on exertion, Denies orthopnea, Denies paroxysmal nocturnal dyspnea and Denies slow heart rate Resp Denies cough, Denies dyspnea and Denies dyspnea on exertion Physical exam (Primary Care) Vital Signs: Last Vital Signs Temp 97.1 F 03/02/25 11:00 Pulse 65 03/02/25 11:00 BP 130/80 03/02/25 11:00 Pulse Ox 98 03/02/25 11:00 Oxygen Delivery Method Room Air 03/02/25 11:00 BMI result Body Mass Index 36.2 Tobacco/Smoking Status: Tobacco use Status Tobacco use date assessed 03/02/25 03/02/25 11:13 Patient Tobacco Use Status Former Tobacco user 03/02/25 11:13 Tobacco use type Cigarette 03/02/25 11:13 e-Cigarette/Vaping Use Never Used 03/02/25 11:13 PHQ-9: PHQ-9 Score PHQ-9: Total score 0 03/02/25 11:26 Depression Screening Interpretation: Negative Thrive Assessment: Date of Thrive Assessment Date Thrive assessed 08/08/24 03/02/25 11:13 Currently or been in a relationship where the following occur: I choose not to answer Resp Effort & Inspection: normal respiratory effort Auscultation: clear to auscultation bilaterally Cardio Jugular venous distension: no JVD Rate: regular rate Rhythm: regular rhythm Heart sounds: S1 normal heart sound present and S2 normal heart sound present Extrem General: Yes full ROM Results AMB Hemoglobin A1c AMB Hemoglobin A1c 5.5 % Last Edit by KATTY Nielson on 03/02/25 11:17 Results Reviewed Results Reviewed: Laboratory Last Values Hgb A1c (Clinic) 5.5 % (4.0-6.0) 03/02/25 10:59 Coding Level of Care Code Est Pt Prev Care 40-64y(88119) Diagnoses Physical exam Z00.00 Diabetes mellitus type 2 in obese E11.69; E66.9 Additional Codes EARLE-7 Assessment Billing - EARLE-7 Assessment Tool: EARLE-7 Assessment 56266 ([id number]) PHQ-9 - 67494 - PHQ-9 Billing: Yes ([id number]) Time Spent (min) 30 Assessment & Plan Assessment & Plan (1) Physical exam: Code(s): Z00.00 - Encounter for general adult medical examination without abnormal findings Category: Medical (2) Diabetes mellitus type 2 in obese: Code(s): E11.69 - Type 2 diabetes mellitus with other specified complication; E66.9 - Obesity, unspecified Category: Medical Plan Repeat in a year. A1c goal is equal or less than 7 %. Orders: Orders Lipid Panel 4 Months E78.5 - Hyperlipidemia, unspecified Microalbumin, Random (w Creat) 4 Months R80.9 - Proteinuria, unspecified Comprehensive Met. Panel 4 Months E11.69 - Type 2 diabetes mellitus with other specified complication, E66.9 - Obesity, unspecified AMB Hemoglobin A1c 03/02/25 E11.69 - Type 2 diabetes mellitus with other specified complication, E66.9 - Obesity, unspecified
[2025-03-02 11:00] VITALS: BP 130/80; PULSE 65; TEMP 36.2; O2SAT 98; BMI 36.2
== END 2025-03-02 11:38 | disposition home or self-care (01) ==
LOC: HO.HMCH 10:50
PROVIDERS: PCP Internal Medicine; Visit Provider Internal Medicine
DX: E11.69 Type 2 diabetes mellitus with other specified complication (principal); E66.9 Obesity, unspecified

== ENCOUNTER → 2025-03-02 10:50 | Outpatient (BNVA) | payer OTHER, SELFPAY | PROVIDERS: PCP Internal Medicine; Visit Provider Internal Medicine | DX: Z00.00 Encounter for general adult medical examination without abnormal findings (principal); I10 Essential (primary) hypertension; E78.5 Hyperlipidemia, unspecified; M54.9 Dorsalgia, unspecified; G89.29 Other chronic pain; E11.69 Type 2 diabetes mellitus with other specified complication; E66.9 Obesity, unspecified; R80.9 Proteinuria, unspecified; Z68.36 Body mass index [BMI] 36.0-36.9, adult | CPT/HCPCS: 83036; 96127; 99396 ==